=== PATIENT | male | born 1940 | race Caucasian/White ===

== ENCOUNTER → 2018-11-25 | Outpatient (CLI) | payer OTHER ==
[~2018-11-25] MED LIST: ACAR50 PO; ALBU3IS INH; ALBU90OI6 INH; ALLO100 PO; AMLO10 PO; AMOX50SU PO; ASPI81CH PO; ATOR40TA PO; Augmentin 875-1 EACH PO; BACL10 PO; BENZ100A PO; BISA10S PR; BUME2; BUME2 PO; COLC.6 PO; DIPH50 PO; DOCU100 PO; ESOM20 PO; FEXPSEER; FLUSAL2505 INH; FLUT.05NI; FURO20 PO; GLIM2; GLIM2 PO; GLIM4 PO; HYDACE10B PO; HYDACE5 PO; HYDMOR2 PO; INS70/30I SC; INS70/30I SUBQ; INS70/30PN SC; INS70/30PN SUBQ; INSLI100I; INSU100I6 SC; INSULANPEN SC; IPRAIS NEB; MAGCHL64ER PO; METO2.5 PO; NITR.4SL SL; NITRO SPRAY; Nitrostat0.4 MG SL; OLME5TAB PO; OXYACE5T PO; OXYC1TAB11 PO; PANT40 PO; PARI1 PO; PERI4; PIOG45 PO; POTA10T PO; PRED20; PRED20 PO; RXHYDMOR2 PO; TAMS.4ER PO; TEMA15 PO; TERA5 PO; Ventolin Soln3 ML INH; Ventolin5 MG/1 ML IH; WARF1; WARF2.5; WARF2.5 PO; WARF3; [UNRECOGNIZED DRUG - REMARK]
== END | disposition home or self-care (01) ==
LOC: PLD 15:53 → LAB SHORT 15:53
DX: D04.39 Carcinoma in situ of skin of other parts of face (principal)
CPT/HCPCS: 88305

== ENCOUNTER → 2018-12-24 | Outpatient (CLI) | payer OTHER ==
[2018-12-24 15:29] LABS: Protein, Urine Quantitative 118.5 mg/dL (0.0-11.9)
== END | disposition home or self-care (01) ==
LOC: LAB SHORT 07:00 → LAB 07:00 → LAB FUT 12-21 15:35
PROVIDERS: Internal Medicine Nephrology
DX: N18.3 Chronic kidney disease, stage 3 (moderate) (principal); D63.1 Anemia in chronic kidney disease; D75.1 Secondary polycythemia; N25.81 Secondary hyperparathyroidism of renal origin; E55.9 Vitamin D deficiency, unspecified; E78.00 Pure hypercholesterolemia, unspecified; R76.9 Abnormal immunological finding in serum, unspecified; R94.5 Abnormal results of liver function studies; R94.6 Abnormal results of thyroid function studies
CPT/HCPCS: 81050; 82043; 82570; 84156

== ENCOUNTER 2019-02-21 12:59 | Emergency (ER) | payer OTHER ==
[~2019-02-21] VITALS: Ht 165.1 cm; Wt 72.6 kg
[2019-02-21] MEDS ORDERED: PRED20 PO (16:44)
[2019-02-21] MEDS ORDERED: KETO10 PO (16:44)
== END 2019-02-21 17:02 | disposition home or self-care (01) ==
LOC: ER 12:59
DX: M54.5 Low back pain (principal); E11.9 Type 2 diabetes mellitus without complications; I25.2 Old myocardial infarction; J44.9 Chronic obstructive pulmonary disease, unspecified; Z87.891 Personal history of nicotine dependence; Z79.899 Other long term (current) drug therapy; Z79.01 Long term (current) use of anticoagulants; Z79.82 Long term (current) use of aspirin
CPT/HCPCS: 96372; 99282-25; J1885

== ENCOUNTER 2019-03-03 14:16 | Inpatient (IN) | payer OTHER ==
[~2019-03-03] VITALS: Ht 167.6 cm; Wt 71.7 kg
[~2019-03-03 14:16] MED LIST changes: +KETO10 PO; +WARF2 PO
[2019-03-03] MEDS ORDERED: FLUT1DIS5 INH (14:38)
[2019-03-03] MEDS ORDERED: LOSA50 PO (14:39)
[2019-03-03] MEDS ORDERED: GABA100 PO (14:40)
[2019-03-03 15:40] LABS: BASOPHILS ABSOLUTE AUTO 0.08 K/mm3 (0.00-0.23); BASOPHILS PERCENT AUTO 1 % (0-2); EOSINOPHILS ABSOLUTE AUTO 0.08 K/mm3 (0.00-0.68); EOSINOPHILS PERCENT AUTO 1 % (0-6); Hematocrit 39.9 % (37.0-53.0); Hemoglobin 13.1 g/dL (13.5-17.5); IMMATURE GRAN ABSOLUTE AUTO 0.15 K/mm3 (0.00-0.10); IMMATURE GRAN PERCENT AUTO 1 % (0-1); LYMPHOCYTES ABSOLUTE AUTO 0.77 K/mm3 (0.84-5.20); LYMPHOCYTES PERCENT AUTO 6 % (21-46); MONOCYTES ABSOLUTE AUTO 0.51 K/mm3 (0.16-1.47); MONOCYTES PERCENT AUTO 4 % (4-13); Mean Corpuscular HGB 31.6 pg (26.0-34.0); Mean Corpuscular HGB Conc 32.8 g/dL (31.5-36.5); Mean Corpuscular Volume 96 fL (80-100); Mean Platelet Volume 9.6 fL (9.1-12.4); NEUTROPHILS ABSOLUTE AUTO 11.54 K/mm3 (1.96-9.15); NEUTROPHILS PERCENT AUTO 88 % (41-73); Platelet Count 166 K/mm3 (150-400); RDW Coefficient Variation 13.2 % (11.7-14.2); RDW Standard Deviation 47.2 fL (35.1-46.3); Red Blood Cell Count 4.15 M/mm3 (4.30-5.90); White Blood Cell Count 13.13 K/mm3 (4.00-11.30)
[2019-03-03 16:10] LABS: Source, Urine Catheter
[2019-03-03 16:14] LABS: Bilirubin, Urine Neg (Neg); Blood, Urine 3+ (Neg); Glucose Qualitative, Urine 3+ (Neg); Ketones, Urine 1+ (Neg); Leukocyte Esterase, Urine 1+ (Neg); Nitrite, Urine Neg (Neg); Protein, Urine 4+ (Neg); Urobilinogen, Urine 2+ (Normal)
[2019-03-03 16:16] LABS: Alanine Aminotransfer (ALT/SGP 19 U/L (12-78); Albumin, Blood 2.3 g/dL (3.4-5.0); Albumin/Globulin Ratio 0.7 (0.8-1.8); Alk Phos 111 U/L (50-136); Anion Gap 7 mmol/L (6-16); Aspartate Aminotrans (AST/SGOT 10 U/L (12-37); Bilirubin, Total 1.6 mg/dL (0.1-1.0); Blood Urea Nitrogen 32 mg/dL (8-24); Bun/Creatinine Ratio 31.1 (12.0-20.0); CO2, Blood 29 mmol/L (21-32); Calcium, Blood 8.6 mg/dL (8.5-10.1); Chloride, Blood 101 mmol/L (98-108); Creatinine, Blood 1.03 mg/dL (0.60-1.20); Globulin, Blood 3.3 g/dL (2.2-4.0); Glomerular Filtration Rate >60 (60-); Glucose, Blood 201 mg/dL (70-99); Potassium, Blood 4.2 mmol/L (3.5-5.5); Sodium, Blood 137 mmol/L (136-145); Total Protein, Blood 5.6 g/dL (6.4-8.2)
[2019-03-03 16:19] LABS: Appearance, Urine Clear (Clear); Color, Urine Yellow (P-Yellow)
[2019-03-03 16:21] LABS: Red Blood Cells, Urine 25-50 /hpf (0-2)
[2019-03-03 16:22] LABS: Bacteria Few /hpf; Mucus Light (0-Heavy); Squamous Epithelial Cells Few /hpf (Few)
[2019-03-03] MEDS ORDERED: ERGO400 PO (18:28)
[2019-03-03 18:53] LABS: Prothrombin Time Results >90.0 Sec (9.7-11.5)
[2019-03-03 18:54] LABS: International Normalized Ratio 13.77
[2019-03-03 20:05] LABS: Prothrombin Time Results >90.0 Sec (9.7-11.5)
[2019-03-03 20:10] LABS: International Normalized Ratio 13.51
[2019-03-03 22:12] LABS: Hematocrit 36.8 % (37.0-53.0); Hemoglobin 12.1 g/dL (13.5-17.5)
--- NOTE | 2019-03-04 03:32 | NUR ---
CRITICAL INR THIS RN WAS NOTIFIED THAT THE PT'S INR WAS CRITICALLY HIGH AT 2009. THE HOSPITALIST JAY JAY DIALLO WAS CONSULTED AT 2129. PO VITAMIN K AND 3 UNITS OF FFP WERE ORDERED. ON ASSESSMENT, THE PT WAS NOTED TO HAVE CRACKLES IN HIS BILAT LOWER LOBES. THE HOSPITALIST JAY JAY DIALLO WAS CONSULTED ABOUT THE POSSIBILITY OF FLUID OVERLOAD, BUT DECLINED TO GIVE ANY DIURETICS AT THIS TIME, AND INSTRUCTED TO KEEP MONITORING. WHILE RECEIVING FFP, THE PT BEGAN COUGHING UP BLOODY SPUTUM, APPROXIMATELY 4 TIMES OF A TABLESPOON EACH. HE ALSO HAD AN EPISODE OF LOW O2 SATS BETWEEN 87-88, AND WAS PUT ON 1-2L OF O2 TO BRING HIM UP TO 90-91%. THE HOSPITALIST DR. COCHRAN WAS CONSULTED AT 0200, WITH NO FURTHER ORDERS AT THIS TIME.
[2019-03-04 05:16] LABS: Hematocrit 32.7 % (37.0-53.0); Hemoglobin 10.6 g/dL (13.5-17.5); Mean Corpuscular HGB 32.4 pg (26.0-34.0); Mean Corpuscular HGB Conc 32.4 g/dL (31.5-36.5); Mean Platelet Volume 9.5 fL (9.1-12.4); Platelet Count 128 K/mm3 (150-400); RDW Coefficient Variation 13.2 % (11.7-14.2); RDW Standard Deviation 49.1 fL (35.1-46.3); Red Blood Cell Count 3.27 M/mm3 (4.30-5.90)
[2019-03-04 05:18] LABS: Mean Corpuscular Volume 100 fL (80-100)
[2019-03-04 05:20] LABS: Base Excess Venous 5.8 mmol/L; Bicarbonate Venous 29.1 mmol/L (24.0-30.0); PCO2 Venous 41.3 mmHg (38-42); PO2 Venous 70.6 mmHg (38-42); pH Blood Venous 7.46 (7.34-7.37)
[2019-03-04 05:31] LABS: International Normalized Ratio 1.74
[2019-03-04 05:33] LABS: Prothrombin Time Results 17.5 Sec (9.7-11.5)
[2019-03-04 05:40] LABS: BAND PERCENT MAN 7 % (0-8); BASOPHILS PERCENT MAN 0 % (0-2); EOSINOPHILS PERCENT MAN 0 % (0-6); LYMPHOCYTES ABSOLUTE MAN 0.42 K/mm3 (0.84-5.20); LYMPHOCYTES PERCENT MAN 4 % (21-46); MONOCYTES PERCENT MAN 0 % (4-13); NEUTROPHILS ABSOLUTE MAN 10.08 K/mm3 (1.96-9.15); SEG NEUTROPHILS PERCENT MAN 89 % (41-73); TOTAL CELLS COUNTED 100
[2019-03-04 05:45] LABS: Alanine Aminotransfer (ALT/SGP 20 U/L (12-78); Albumin, Blood 2.5 g/dL (3.4-5.0); Albumin/Globulin Ratio 0.7 (0.8-1.8); Alk Phos 97 U/L (50-136); Anion Gap 6 mmol/L (6-16); Aspartate Aminotrans (AST/SGOT 19 U/L (12-37); Bilirubin, Total 2.2 mg/dL (0.1-1.0); Blood Urea Nitrogen 26 mg/dL (8-24); Bun/Creatinine Ratio 24.1 (12.0-20.0); CO2, Blood 30 mmol/L (21-32); Calcium, Blood 8.6 mg/dL (8.5-10.1); Chloride, Blood 103 mmol/L (98-108); Creatinine, Blood 1.08 mg/dL (0.60-1.20); Globulin, Blood 3.4 g/dL (2.2-4.0); Glomerular Filtration Rate >60 (60-); Glucose, Blood 158 mg/dL (70-99); Potassium, Blood 4.1 mmol/L (3.5-5.5); Sodium, Blood 139 mmol/L (136-145); Total Protein, Blood 5.9 g/dL (6.4-8.2)
--- NOTE | 2019-03-04 06:45 | NUR ---
SHIFT SUMMARY PT IS A 78 Y/O MALE, ADMITTED FOR DIVERTICULITIS. PER REPORT, PT WAS ALSO FOUND TO HAVE A LUMBAR FRACTURE, THOUGH THE AGE OF THE FRACTURE WAS UNDETERMINED. THE PT DID REPORT SEVERE BACK PAIN WITH MOVEMENT, WELL SOME LOWER ABDOMINAL PAIN, FOR WHICH HE WAS MEDICATED X 2 WITH PRN DILAUDID. THE PT HAD A CRITICAL INR OF 13.5 (SEE PREVIOUS NOTE), WHICH AFTER TREATMENT CAME DOWN TO 1.74 ON AM LABS. THE PT'S O2 SATS DROPPED DOWN TO 87-88%, AND CAME UP TO 90-91% ONCE PLACED ON 2L OF O2 FROM RA. ALL OTHER VITALS STABLE. PT IS ON TELE, WHICH SHOWED AFIB IN THE 60-70S. NO OTHER ACUTE CHANGES IN PT CONDITION NOTED DURING THE NIGHT. WILL CONTINUE TO MONITOR AND TREAT PER EMAR.
--- NOTE | 2019-03-04 07:38 | NUR ---
ASSUMED CARE OF PT- BEDSIDE REPORT COMPLETE WITH NIGHT RN CRISTINA. PT JUST ATTEMPTED TO URINATE AT THE BEDSIDE WITH THE URINAL. PT WAS NOTABLY SOB. ON CONT BIOX PT SATS IN THE 70'S, INSTRUCTED PT ON BREATHING, PT COUGHED UP BLOODY SPUTUM, DARK RED. O2 INCREASED TO 4L NC FOR PT TO RECOVER, SATS CAME TO THE 90'S REDUCED TO 3L AND SATS DROPPED TO THE MID 80'S. RT ARRIVED AND PT INCREASED TO 4L VIA NC. OXIMIZER AT THE BEDSIDE IF NEEDED. LUNG SOUNDS ARE TIGHT WITH FINE CRACKLES AND WHEEZES T/O. CALLED DR MALLOY AND UPDATED ON PT CONDITION. NEW ORDER FOR OT 80MG IV LASIX AND 2VIEW CHEST XRAY. RT SUGGESTED BIPAP FOR THIS PT, NO ORDER AT THIS TIME WILL CONTINUE TO MONITOR.
--- NOTE | 2019-03-04 09:09 | NUR ---
PT IS STILL VERY SOB AND COUGHING UP BLOODY SPUTUM. CHEST XRAY OBTAINED. PT RECIEVED FELICIA, HAVING DIFFICULTY WITH THE URINAL, WILL ATTEMPT BEDSIDE COMODE FOR COMFORT AND STRESS REDUCTION ON THE PT, IF HE IS ABLE TO TOLLERATE THE ACTIVITY. PT ACTIVITY TOLLERANCE IS VERY LOW, O2 SATS DROP WITH MILD ACTIVITY. SEEMS TO BE MORE TIRED NOT THAN THE START OF THE DAY, POSSIBLY RELATED TO THE DILAUDID; HOWEVER PT IS NOT NARCOTIC NAIVE.
--- NOTE | 2019-03-04 09:47 | NUR ---
PATIENT DID NOT FEEL LIKE EATING BREAKFAST THIS MORNING. PATIENT DECLINED TRAY. RN NOTIFIED.
--- NOTE | 2019-03-04 12:17 | NUR ---
PATIENT DECLINED LUNCH TRAY. RN NOTIFIED.
--- NOTE | 2019-03-04 12:25 | NUR ---
EMERSON CATH INSERTION- STERILE TECNIQUE MAINTAINED. PT TOLLERATED WELL. PT BLADDER SCAN WAS 396ML. INITIAL OUTPUT WAS 550ML OUT.
[2019-03-04 12:30] LABS: Source, Urine Catheter
[2019-03-04 12:40] LABS: Bilirubin, Urine Neg (Neg); Blood, Urine 3+ (Neg); Glucose Qualitative, Urine Neg (Neg); Ketones, Urine Neg (Neg); Leukocyte Esterase, Urine Neg (Neg); Nitrite, Urine Neg (Neg); Protein, Urine 2+ (Neg); Urobilinogen, Urine NORM (Normal)
[2019-03-04 12:53] LABS: Appearance, Urine Clear (Clear); Color, Urine Yellow (P-Yellow)
[2019-03-04 12:55] LABS: White Blood Cells, Urine 0-2 /hpf (0-5)
[2019-03-04 12:56] LABS: Bacteria Few /hpf; Mucus Light (0-Heavy); Squamous Epithelial Cells Not Seen /hpf (Few)
--- NOTE | 2019-03-04 18:44 | NUR ---
Initial Visit: Palliative Care Consult for Advanced Care Planning. Pt is A&Ox3. He is unable to verbalize current year. Pt reports 7/10 pain in his back, left hip, and left shoulder. Pt reports the Fentanyl patch has improved his pain. Pt denies anxiety, dyspnea, and nausea. Pt's Rosa present during visit. Engaged in therpaeutic conversation regarding advanced care planning and goals of care. Pt lives at home with his and oldest son. Pt is of [employer] [place]. Listened as Pt expresses his appriciation for his and son. Pt reports he is independent with his ADLs. Rosa reports Pt has shown a decline over the last couple of years in his ability to do certain activities. Pt is not able to mow the lawn or wash the car. He still does a significant amount of the chores inside the house such as laundry and cooking. 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 Discuss the importance of knowing the stage of his disease process in order to plan accordingly. Discussed AD/POLST with Pt. Rosa reports Pt has a completed POLST at his PCP. This RN requested Rosa to bring a copy of POLST to hospital for medical records. Educated Pt on the importance of keeping the original and giving out copies to PCP and other health care staff. Pt report no other concerns at this time. Plan: Obtain copy of POLST from family. Will remain available.
--- NOTE | 2019-03-04 18:57 | NUR ---
Late Entry from Initial Visit. Spoke with Pt's nurse Nya and she reports Pt's pain is managed with current regimen. Nya reports no concerns at this time.
--- NOTE | 2019-03-04 19:44 | NUR ---
SHIFT SUMMARY- PT PAIN SEEMS TO BE WELL MANAGE, DURING BEDSIDE REPORT PT RATED 6/10. DISCUSSED THE USE OF PAIN MEDICATION WITH THE PT AND HE AGREED TO TAKE DILAUDID NOW BEFORE HIS PAIN GOT WORSE. PT ALERT AND ORIENTED. CALL LIGHT IN REACH, EMERSON IN PLACE PATENT AND DRAINING PT HAS HAD MORE THAN 1000ML OUT SINCE THE EMERSON INSERTION THIS AFTERNOON. PT SLEPT FOR QUITE A BIT OF THE AFTERNOON AND WHEN HE WOKE WAS HUNGRY FOR THE FIRST TIME THIS SHIFT. PT SAT UP AT THE EOB ON HIS OWN WITH MINIMAL SIGN OF PAIN, O2 SATS STILL DROP WITH ACTIVITY LIKE THIS AND PT IS TURNED UP TO 5L NC UNTIL HE LAYS BACK DOWN. DR AWARE OF PT INCREASED O2 REQUIREMENTS, PT HAS NOT COUGHED UP MUCH BLOODY SPUTUM SINCE THIS AFTERNOON, LUNG SOUND STILL CRACKLY IN ALL [place].
[2019-03-04 21:36] LABS: Source, Urine Catheter
[2019-03-04 21:39] LABS: Appearance, Urine Hazy (Clear); Bilirubin, Urine Neg (Neg); Blood, Urine 4+ (Neg); Color, Urine Yellow (P-Yellow); Glucose Qualitative, Urine 3+ (Neg); Ketones, Urine 2+ (Neg); Leukocyte Esterase, Urine 1+ (Neg); Nitrite, Urine Neg (Neg); Protein, Urine 3+ (Neg); Urobilinogen, Urine 1+ (Normal)
[2019-03-04 21:45] LABS: Bacteria Many /hpf; Squamous Epithelial Cells Not Seen /hpf (Few)
[2019-03-05 04:50] LABS: BASOPHILS ABSOLUTE AUTO 0.05 K/mm3 (0.00-0.23); BASOPHILS PERCENT AUTO 1 % (0-2); EOSINOPHILS PERCENT AUTO 0 % (0-6); Hematocrit 31.4 % (37.0-53.0); Hemoglobin 10.1 g/dL (13.5-17.5); IMMATURE GRAN ABSOLUTE AUTO 0.19 K/mm3 (0.00-0.10); IMMATURE GRAN PERCENT AUTO 2 % (0-1); LYMPHOCYTES ABSOLUTE AUTO 0.14 K/mm3 (0.84-5.20); LYMPHOCYTES PERCENT AUTO 1 % (21-46); MONOCYTES ABSOLUTE AUTO 0.19 K/mm3 (0.16-1.47); MONOCYTES PERCENT AUTO 2 % (4-13); Mean Corpuscular HGB 31.4 pg (26.0-34.0); Mean Corpuscular HGB Conc 32.2 g/dL (31.5-36.5); Mean Corpuscular Volume 98 fL (80-100); Mean Platelet Volume 9.7 fL (9.1-12.4); NEUTROPHILS ABSOLUTE AUTO 10.29 K/mm3 (1.96-9.15); NEUTROPHILS PERCENT AUTO 95 % (41-73); Platelet Count 123 K/mm3 (150-400); RDW Coefficient Variation 13.1 % (11.7-14.2); RDW Standard Deviation 47.3 fL (35.1-46.3); Red Blood Cell Count 3.22 M/mm3 (4.30-5.90); White Blood Cell Count 10.86 K/mm3 (4.00-11.30)
[2019-03-05 05:03] LABS: International Normalized Ratio 1.51; Prothrombin Time Results 15.4 Sec (9.7-11.5)
[2019-03-05 05:17] LABS: Anion Gap 6 mmol/L (6-16); Blood Urea Nitrogen 29 mg/dL (8-24); CO2, Blood 32 mmol/L (21-32); Calcium, Blood 8.4 mg/dL (8.5-10.1); Chloride, Blood 95 mmol/L (98-108); Creatinine, Blood 1.16 mg/dL (0.60-1.20); Glomerular Filtration Rate >60 (60-); Glucose, Blood 383 mg/dL (70-99); Potassium, Blood 3.4 mmol/L (3.5-5.5); Sodium, Blood 133 mmol/L (136-145)
--- NOTE | 2019-03-05 07:37 | NUR ---
ASSUMED CARE OF PT- PT SLEEPING DURRING BEDSIDE REPORT WITH NIGHT RN SARY, O2 SATS 97% ON 4L NC, REDUCED TO 3L NC. PT ON CONTINUOUS PULS OXIMETRY WILL CONTINUE TO MONITOR AND TITRATE O2 NEEDED.
--- NOTE | 2019-03-05 07:43 | NUR ---
SPOKE TO RT JUDY- PT O2 TITRATED DOWN TO 3LNC SATTING 95% SPOKE TO RT AND TITRATED DOWN AGAIN TO 2LNC WILL CTM. RT AWARE AND WILL RECHECK SATS ON MORNING ROUNDS.
--- NOTE | 2019-03-05 18:07 | NUR ---
SHIFT SUMMARY- PT O2 SATS STAYING STABLE IN THE 80'S SO O2 WAS TITRATED BACK TO 4L NC. PT SATTING 94 WHILE AWAKE ON 4L NC. ON LAST ROUNDS PT DECLINED THE NEED FOR PAIN MEDICATION STATED HIS PAIN WAS 4/10. 20G IV IN THE RIGHT FORE ARM IS CURREMTLY RUNNING ABX, OTHERWISE IT IS SL. PT HAS NO C/O NAUSEA AND NO S&S OF DISTRESS NOTED AT THIS TIME. PT SITTING UP IN BED WITH HIS CALL LIGHT IN REACH. PT DIET RETURNED TO 2 GRAM LOW SODIUM. PT HAD AN EXTRA LARGE BM THIS MORNING. HE HAS SLEPT TODAY, BUT NOT MUCH YESTERDAY AND SEEMS TO BE MORE ENERGETIC WHEN HE IS AWAKE, BED BATH COMPLETED BY THE ARCHITECTURAL WOOD MODEL MAKER THIS MORNING.
--- NOTE | 2019-03-06 04:16 | NUR ---
SHIFT SUMMARY PT HAD SOME DISCOMFORT T/O SHIFT. PT TX PER EMAR WITH GOOD RELIEF. PT HAD FAMILY VISIT AND WAS IN GOOD SPIRITS. PT WAS UP LATE WATCHING TV. PT CURRENTLY SLEEPING IN NO DISTRESS. CALL LIGHT IN REACH.
[2019-03-06 05:06] LABS: BASOPHILS ABSOLUTE AUTO 0.05 K/mm3 (0.00-0.23); BASOPHILS PERCENT AUTO 1 % (0-2); EOSINOPHILS ABSOLUTE AUTO 0.14 K/mm3 (0.00-0.68); EOSINOPHILS PERCENT AUTO 1 % (0-6); Hematocrit 31.6 % (37.0-53.0); Hemoglobin 10.5 g/dL (13.5-17.5); IMMATURE GRAN ABSOLUTE AUTO 0.17 K/mm3 (0.00-0.10); IMMATURE GRAN PERCENT AUTO 2 % (0-1); LYMPHOCYTES PERCENT AUTO 6 % (21-46); MONOCYTES ABSOLUTE AUTO 0.48 K/mm3 (0.16-1.47); MONOCYTES PERCENT AUTO 5 % (4-13); Mean Corpuscular HGB 32.2 pg (26.0-34.0); Mean Corpuscular HGB Conc 33.2 g/dL (31.5-36.5); Mean Corpuscular Volume 97 fL (80-100); Mean Platelet Volume 9.7 fL (9.1-12.4); NEUTROPHILS ABSOLUTE AUTO 8.71 K/mm3 (1.96-9.15); NEUTROPHILS PERCENT AUTO 86 % (41-73); Platelet Count 137 K/mm3 (150-400); RDW Coefficient Variation 12.9 % (11.7-14.2); RDW Standard Deviation 46.4 fL (35.1-46.3); Red Blood Cell Count 3.26 M/mm3 (4.30-5.90); White Blood Cell Count 10.15 K/mm3 (4.00-11.30)
[2019-03-06 05:21] LABS: International Normalized Ratio 2.19; Prothrombin Time Results 21.6 Sec (9.7-11.5)
[2019-03-06 05:24] LABS: Calcium, Blood 8.4 mg/dL (8.5-10.1); Creatinine, Blood 1.39 mg/dL (0.60-1.20); Potassium, Blood 3.4 mmol/L (3.5-5.5)
--- NOTE | 2019-03-06 08:16 | NUR ---
ASSUMED CARE OF PT- BEDSIDE REPORT COMPLETED WITH [facility] RANDOLPH OKEEFE. PT DENIES NEED FOR PAIN MEDICATION AT THIS TIME, WILL CTM. PT ALERT AND ORIENTED AND HAS THE CALL LIGHT IN REACH, NO S&S OF DISTRESS NOTED, SPOUSE AND SON AT BEDSIDE. ON 4L NC, CONT BIOX SHOWS SATS 94%.
--- NOTE | 2019-03-06 16:36 | NUR ---
CALLED PALLIATIVE CARE- OFFICE IS CLOSED D/T HOLIDAY, SPOKE WITH NURSING TOP BOTTOM ATTACHING MACHINE OPERATOR TO VERIFY.
--- NOTE | 2019-03-06 16:36 | NUR ---
PT C/O 06/25 PAIN- PT RECIEVED OXYCODONE AT 1300 WAS CALLING FOR PAIN MEDICATION AGAIN AT 1500. TALKED ABOUT CHANGES MADE TO RETURN THE PT TO HOME PAIN MEDICATION DOSE. PT REPOSITIONED WITH TWO STAFF ASSIST, 15 MIN RECHECK THIS STILL DID NOT HELP. HEATING PAD PLACED OVER THE AREA CAUSING THE PT THE MOST PAIN. JUST DID 30MIN RECHECK AND PT IS NEAR TEARS STATED THE PAIN IS STILL BAD. WILL CALL TO NOTIFY.
--- NOTE | 2019-03-06 19:01 | NUR ---
SHIFT SUMMARY- FENTANYL PATCH CHANGED TO 100MCG. PT BP WAS LOW 90/50, SPOKE ABOUT THE DANGER OF IV NARCOTICS WITH A BP THIS LOW, DID NOT GIVE NEW ORDER FOR IV DILAUDID FOR THIS REASON. FOLLOW UP FOR PATCH CHANGE SHOWED THE PT FAR MORE MOBILE ALREADY, STILL PAINFUL BUT DEFINATELY NOT LIKE HE WAS BEFORE. PT SAT UP AT THE EOB TO EAT HIS DINNER, SPOKE WITH HIM ABOUT GETTING OUT OF BED INTO A CHAIR, FOLWY CATHETER IS PATENT AND DRAINING CURRENTLY. PT HAS BEEN ON FLOMAX FOR TWO DAYS, POSSIBLY ABLE TO DO BLADDER TRAINING AND DC EMERSON TOMORROW.
--- NOTE | 2019-03-07 04:13 | NUR ---
SHIFT SUMMARY PT BP INCREASED AT BEGINNING OF SHIFT. PT WAS ABLE TO BE MEDICATED FOR PAIN WITH GOOD RELIEF. PT WENT TO SLEEP EARLIER THIS SHIFT AND SLEPT WELL T/O SHIFT. PT ONLY NEW COMPLAINT IS GREAT TOE DISCOMFORT ON LEFT FOOT. PT STATES HE NORMALLY HAS HIS NAILS TRIMMED BY HIS EDUCATION PROGRAM MANAGER AND BELIEVES HE HAS A INGROWN NAIL. PT HAD NO ACUTE ISSUES NOTED. PT WAS REPOSITIONED NEEDED FOR COMFORT. PT CURRENTLY AWAKE WATCHING TV AND BREATHING EASY. CALL LIGHT IN REACH.
[2019-03-07 04:59] LABS: BASOPHILS ABSOLUTE AUTO 0.06 K/mm3 (0.00-0.23); BASOPHILS PERCENT AUTO 1 % (0-2); EOSINOPHILS PERCENT AUTO 0 % (0-6); Hematocrit 30.1 % (37.0-53.0); Hemoglobin 9.8 g/dL (13.5-17.5); IMMATURE GRAN ABSOLUTE AUTO 0.13 K/mm3 (0.00-0.10); IMMATURE GRAN PERCENT AUTO 2 % (0-1); LYMPHOCYTES PERCENT AUTO 4 % (21-46); MONOCYTES ABSOLUTE AUTO 0.26 K/mm3 (0.16-1.47); MONOCYTES PERCENT AUTO 3 % (4-13); Mean Corpuscular HGB 32.2 pg (26.0-34.0); Mean Corpuscular HGB Conc 32.6 g/dL (31.5-36.5); Mean Corpuscular Volume 99 fL (80-100); Mean Platelet Volume 9.9 fL (9.1-12.4); NEUTROPHILS PERCENT AUTO 91 % (41-73); Platelet Count 144 K/mm3 (150-400); RDW Coefficient Variation 12.9 % (11.7-14.2); RDW Standard Deviation 46.5 fL (35.1-46.3); Red Blood Cell Count 3.04 M/mm3 (4.30-5.90); White Blood Cell Count 7.95 K/mm3 (4.00-11.30)
[2019-03-07 05:13] LABS: International Normalized Ratio 3.8; Prothrombin Time Results 35.7 Sec (9.7-11.5)
[2019-03-07 05:20] LABS: Bun/Creatinine Ratio 28.7 (12.0-20.0); Calcium, Blood 8.6 mg/dL (8.5-10.1); Creatinine, Blood 1.29 mg/dL (0.60-1.20); Potassium, Blood 4.6 mmol/L (3.5-5.5)
[2019-03-07 05:49] LABS: PCO2 Arterial 50.5 mmHg (35-45); PO2 Arterial 81.7 mmHg (80-100); pH Blood Arterial 7.42 (7.35-7.45)
--- NOTE | 2019-03-07 19:40 | NUR ---
PAIN UNDER BETTER CONTROL TODAY, ALTERNATING IV DILAUDID WITH PO ROXICODONE. NEW IV PLACED THIS SHIFT AND PT RECEIVING IV ABX. NO ACUTE CHANGES NOTED THIS SHIFT, WILL CONTINUE TO MONITOR AND REPORT TO ONCOMING RN
--- NOTE | 2019-03-08 05:06 | NUR ---
FITNESS PROFESSIONAL SUMMARY NO ACUTE CHAGNES THIS SHIFT. PT AAOX4 AND VERY PLEASANT. TREATED FOR BACK AND R HIP PAIN X2 PER EMAR. EMERSON CATH IN PLACE, PATENT AND DRAINING. PT HAS NOT HAD A BM THIS SHIFT, DENIES ANY FLATUS WELL. PT REMAINS ON 3L O2 VIA NC. VSS, WILLC CONTINUE TO MONITOR.
[2019-03-08 06:05] LABS: Prothrombin Time Results 48.2 Sec (9.7-11.5)
[2019-03-08 06:09] LABS: International Normalized Ratio 5.29
--- NOTE | 2019-03-08 18:00 | NUR ---
SHIFT SUMMARY STUART COMPLAINED OF LOWER BACK PAIN WHICH AMBULATION AND HEAT AND OXY HELPED WITH. WALKED AROUND BIG LOOP OF HALLWAY WITH SBA AND WALKER. EMERSON FOR RETENTION DRAINING WELL. CBGS REQUIRING INSULIN X1. ON 3L OXYGEN. HAD BM ON BSC. TOOK PILLS PRESCRIBED. WCTM
--- NOTE | 2019-03-09 00:56 | NUR ---
Pt was given his HS contrast for CT scan in am. When I turned my back he decided he did not like it and very quickly dumped it in the garbage can. He stated that he drank 1/2 of it but I did not witness. Radiology called to see what I should do. I was told to continue with morning dose as planned with close supervision.
--- NOTE | 2019-03-09 04:47 | NUR ---
Shift summary: Pt getting oxycodone during the night for back pain q 4 hours. Pt able to drink his contrast this am. Pt sleeping most of night. Maintaining sats> 90 with 3 liters 02. Pt to go for CT of abdomen this am.
[2019-03-09 05:01] LABS: Hematocrit 35.2 % (37.0-53.0); Hemoglobin 11.2 g/dL (13.5-17.5); Mean Corpuscular HGB Conc 31.8 g/dL (31.5-36.5); Mean Corpuscular Volume 101 fL (80-100); Mean Platelet Volume 9.5 fL (9.1-12.4); Platelet Count 231 K/mm3 (150-400); RDW Coefficient Variation 13.1 % (11.7-14.2); RDW Standard Deviation 48.4 fL (35.1-46.3); White Blood Cell Count 11.05 K/mm3 (4.00-11.30)
[2019-03-09 05:21] LABS: Prothrombin Time Results 47.6 Sec (9.7-11.5)
[2019-03-09 05:30] LABS: International Normalized Ratio 5.22
[2019-03-09 05:33] LABS: Albumin, Blood 2.5 g/dL (3.4-5.0); Anion Gap 5 mmol/L (6-16); Blood Urea Nitrogen 31 mg/dL (8-24); CO2, Blood 32 mmol/L (21-32); Calcium, Blood 9.5 mg/dL (8.5-10.1); Chloride, Blood 102 mmol/L (98-108); Creatinine, Blood 1.07 mg/dL (0.60-1.20); Glomerular Filtration Rate >60 (60-); Glucose, Blood 180 mg/dL (70-99); Potassium, Blood 4.7 mmol/L (3.5-5.5); Sodium, Blood 139 mmol/L (136-145)
--- NOTE | 2019-03-09 05:42 | NUR ---
Shift summary: INR = 5.22 down from 5.29 from yesterday. Critical notification document and discussed with charge nurse. Pt able to successfully drink the rest of his contrast this am. Abdomen distended this am. Bowel sound active . VSS. Pt c/o back pain- given oxycodone with adequate relief. Pt to CT at 0600 via wheelchair for abdominal/pelvic ct scan. Lungs diminished throughout. Pt has occasional cough coughing up brown flem. O2 on at 3 liters to keep sat > 90.
--- NOTE | 2019-03-09 11:36 | NUR ---
CHOLESTEROL/GAS MED PATIENT IS PATIENT IS REQUESTING A MEDICATION CALLED [facility]? OR SOMETHING SIMILAR. WILL CALL HIS PHARMACY TO [place]. THE MEDICATION IS USED TO TREAT CHOLESTEROL BUT ALSO HELPS HIM RELIEVE GAS AND DISTENTION.
--- NOTE | 2019-03-09 11:38 | NUR ---
CHOLESTEROL MED/GAS MED UPDATE. THE MEDICATION IS CALLED ACAR[facility]
--- NOTE | 2019-03-09 14:48 | NUR ---
TRANSFER OF CARE TO RANDOLPH TAYLOR.
--- NOTE | 2019-03-09 17:48 | NUR ---
SHIFT SUMMARY: ASSUMED CARE AT APPROX. 1445. REPORT FROM RANDOLPH SAINI. PT REPORTS HIS PAIN IS IMPROVING. LIDOCAINE PATCH PLACED TO LOWER BACK THIS AFTERNOON AND FENTANYL PATCH CHANGED. PT REQUESTED OXYCODONE LATE THIS AFTERNOON. NO ACUTE CHANGES. WILL CONTINUE TO MONITOR.
--- NOTE | 2019-03-09 23:55 | NUR ---
PT LYING HF WATCHING TV DURING SHIFT REPORT. IN RM AT BS. PT ADMITTED FOR DIVERTICULITIS AND NOW BOWEL PERFORATION, PER CT FINDINGS TODAY. ABD SWOLLEN SLIGHTLY. PER SHIFT REPORT, PT IS IMPROVING. NO S/SX'S OF DISTRESS NOTED OR REPORTED. PT DOES C/O CHRONIC LBP. LIDOCAINE AND FENTANYL PATCHES IN PLACE PER ORDERS. PT ALSO MEDICATED PRN PER EMAR. PER PT'S , PT ALSO HAS SOME PNM D/T DECREASED MOBILITY. LUNG'S T/O DIMINISHED WITH SCATTERED CRACKLES. IV ABX INFUSING PER EMAR. CURRENTLY ON 3L O2 NC. PT WAS NOT O2 DEPENDANT AT HOME PRIOR TO PNM. STAYING IN RM TO ASSIST WITH CARE, PER PT REQUEST. CALL LT IN REACH. WILL REPORT TO ROGER DICKSON.
--- NOTE | 2019-03-10 00:48 | NUR ---
0015 RECEIVED REPORT FROM RANDOLPH PEREZ. ASSUMED CARE OF PATIENT.
--- NOTE | 2019-03-10 04:32 | NUR ---
SHIFT SUMMARY A/O, ABLE TO MAKE NEEDS KNOWN. COOPERATIVE WITH CARE. AT BEDSIDE. APPEARED TO REST MUCH OF SHIFT. EMERSON PATENT AND SECURED. REMAINS ON 2.5 L OF O2 VIA NC, SATING >90%. VSS/AFEBRILE. NO ACUTE CHANGES OVERNIGHT. BED IN LOWEST POSITION. CALL LIGHT AND BELONGINGS WITHIN REACH. WCTM. REPORT TO ONCOMING RN.
[2019-03-10 04:40] LABS: BASOPHILS ABSOLUTE AUTO 0.05 K/mm3 (0.00-0.23); BASOPHILS PERCENT AUTO 1 % (0-2); EOSINOPHILS ABSOLUTE AUTO 0.01 K/mm3 (0.00-0.68); EOSINOPHILS PERCENT AUTO 0 % (0-6); Hematocrit 34.2 % (37.0-53.0); IMMATURE GRAN ABSOLUTE AUTO 0.47 K/mm3 (0.00-0.10); IMMATURE GRAN PERCENT AUTO 5 % (0-1); LYMPHOCYTES ABSOLUTE AUTO 0.88 K/mm3 (0.84-5.20); LYMPHOCYTES PERCENT AUTO 9 % (21-46); MONOCYTES ABSOLUTE AUTO 0.47 K/mm3 (0.16-1.47); MONOCYTES PERCENT AUTO 5 % (4-13); Mean Corpuscular HGB 32.5 pg (26.0-34.0); Mean Corpuscular HGB Conc 32.2 g/dL (31.5-36.5); Mean Corpuscular Volume 101 fL (80-100); Mean Platelet Volume 9.3 fL (9.1-12.4); NEUTROPHILS ABSOLUTE AUTO 7.85 K/mm3 (1.96-9.15); NEUTROPHILS PERCENT AUTO 81 % (41-73); NRBC ABSOLUTE 0.02 K/mm3 (0.00-0.02); NRBC Auto 0.2 /100 WBC (0.0-0.2); Platelet Count 240 K/mm3 (150-400); RDW Coefficient Variation 13.3 % (11.7-14.2); RDW Standard Deviation 49.6 fL (35.1-46.3); Red Blood Cell Count 3.38 M/mm3 (4.30-5.90); White Blood Cell Count 9.73 K/mm3 (4.00-11.30)
[2019-03-10 04:54] LABS: International Normalized Ratio 3.6
[2019-03-10 05:06] LABS: Anion Gap 4 mmol/L (6-16); Blood Urea Nitrogen 33 mg/dL (8-24); Bun/Creatinine Ratio 28.9 (12.0-20.0); CO2, Blood 32 mmol/L (21-32); Chloride, Blood 101 mmol/L (98-108); Creatinine, Blood 1.14 mg/dL (0.60-1.20); Glomerular Filtration Rate >60 (60-); Glucose, Blood 329 mg/dL (70-99); Potassium, Blood 5.3 mmol/L (3.5-5.5); Sodium, Blood 137 mmol/L (136-145)
[2019-03-10 05:08] LABS: Calcium, Blood 9.4 mg/dL (8.5-10.1)
--- NOTE | 2019-03-10 19:37 | NUR ---
SHIFT SUMMARY PT A&OX3, CALM AND COOPERATIVE WITH CARE. PT RESTING IN BED DURING SHIFT, ENCOURAGED PT TO GET UP IN CHAIR FOR MEALS, PT REFUSED. PT UP WITH 1 PERSON ASSIST WALKED T/O HALLS. PT TITRTATED TO 2L O2 VIA NC DURING SHIFT, >92% ON 2L. PRODUCTIVE COUGH, BOWEN IN COLOR WITH RED SPECKS, DR VILLARREAL NOTIFIED THIS AFTERNOON. PT REPROTS BACK PAIN, MEDICATED WITH LIDO PATCH AND CALCITONIN SPRAY, FENT PATCH IN PLACE AND OXYCODONE X3 DURING SHIFT. PT REPORTS NAUSEA THIS AM, MEDICATED X1 WITH REGLAN WIHT POSITIVE RESULTS, NO EMESIS NOTED DURING SHIFT. PT RECEIVING IV ANTIBIOTICS. EMERSON IN PLACE AND DRAINING. ELEVATED BP NOTED, MEDICATED PER EMAR. OTHER VSS. NO OTHER ACUTE CHANGES NOTED DURING SHIFT. REPORT GIVEN TO ONCOMING RN.
--- NOTE | 2019-03-11 04:12 | NUR ---
SHIFT SUMMARY PATIENT HAD NO ACUTE CHANGES OBSERVED THIS SHIFT. AXOX 3 AND ONE ASSIST TO BSC. TAKES MEDICATION WHOLE WITH WATER. VSS/AFEBRILE. DENIES PAIN, SOB, AND N/V. PIV REMAINS INTACT. IV ABX INFUSED. ON 2L O2 NC. EMERSON FOR RETENTION PATENT AND DRAINING. CBG 165. COOPERATIVE WITH CARE. CALL LIGHT IN REACH. BED IN LOWEST POSITION. WILL CONTINUE TO MONITOR UNTIL DAY SHIFT NURSE ASSUMES CARE.
[2019-03-11 05:25] LABS: International Normalized Ratio 2.13; Prothrombin Time Results 21.1 Sec (9.7-11.5)
--- NOTE | 2019-03-11 06:04 | NUR ---
PATIENT HAD SOB WITH BACK PAIN. PATIENT GETTING ANXIOUS. RT IN FOR BREATHING TX AND PAIN MEDICATION GIVEN PER EMAR. PATIENT SOB DECREASED AND LOW BACK PAIN DECREASED. PATIENT RESTING IN BED. CALL LIGHT IN REACH.
[2019-03-11 07:59] LABS: Hematocrit 43.4 % (37.0-53.0); Hemoglobin 13.6 g/dL (13.5-17.5); Mean Corpuscular HGB 31.7 pg (26.0-34.0); Mean Corpuscular HGB Conc 31.3 g/dL (31.5-36.5); Mean Corpuscular Volume 101 fL (80-100); Mean Platelet Volume 9.5 fL (9.1-12.4); NRBC ABSOLUTE 0.08 K/mm3 (0.00-0.02); NRBC Auto 0.6 /100 WBC (0.0-0.2); Platelet Count 319 K/mm3 (150-400); RDW Coefficient Variation 13.5 % (11.7-14.2); RDW Standard Deviation 49.8 fL (35.1-46.3); Red Blood Cell Count 4.29 M/mm3 (4.30-5.90); White Blood Cell Count 12.33 K/mm3 (4.00-11.30)
[2019-03-11 08:14] LABS: Anion Gap 4 mmol/L (6-16); Blood Urea Nitrogen 28 mg/dL (8-24); Bun/Creatinine Ratio 25.5 (12.0-20.0); CO2, Blood 33 mmol/L (21-32); Calcium, Blood 10.2 mg/dL (8.5-10.1); Chloride, Blood 100 mmol/L (98-108); Glomerular Filtration Rate >60 (60-); Glucose, Blood 78 mg/dL (70-99); Potassium, Blood 5.2 mmol/L (3.5-5.5); Sodium, Blood 137 mmol/L (136-145); Troponin I 0.024 ng/mL (0.000-0.040)
[2019-03-11 08:28] LABS: PCO2 Arterial 42.4 mmHg (35-45); PO2 Arterial 57.2 mmHg (80-100)
--- NOTE | 2019-03-11 11:02 | NUR ---
PATIENT WAS NOT DOING WELL THIS MORNING. CHANGE OF OXYGEN NEED FROM THE PATIENT HE WAS ON 2L VIA NC, HIS OXYGEN NEED INCREASED TO 10L VIA OXIMYZER. HIS CONTINUOUS BIOX WAS PLACED AND HIS CONCENTRATION DID NOT GET ABOVE 90%. DR. VILLARREAL WAS AWARE AND PATIENT WAS TRANSFERRED TO PCU WHERE HE CAN BE MONITORED CLOSER. HANDED OFF THE PATIENT TO SINCERE CHANG. MEDICATIONS WERE NOT ADMINISTERED THIS MORNING DUE TO THE PATIENT'S LETHARGY AND MENTAL STATUS. WE WERE NOT ABLE TO GET HIM AWAKE ENOUGH TO SAFELY TAKE MEDICATIONS DUE TO HIS CURRENT DIAGNOSIS OF ASPIRATION PNEUMONIA.
--- NOTE | 2019-03-11 12:30 | NUR ---
ASSUMED CARE OF PATIENT, REPORT RECIEVED FROM PAVITHRA DICKSON. PT IS RESTING COMFORTABLY ON HIS LEFT SIDE WITH EYES CLOSED RESP E/U. FAMILY AT BEDSIDE, PT DENIES NEEDS AT THIS TIME, CALL LIGHT IN REACH.
--- NOTE | 2019-03-11 15:30 | NUR ---
BP A LITTLE LOW. PT IS NOW MORE AWAKE AND IS ABLE TO STAY AWAKE TO SWALLOW PILLS. VSS. FAMILY AT BEDSIDE. PT IS HAVING SPASMS WITH MOVEMENT, FLEXARIL GIVEN. PT C/O DISCOMFORT AT IV SITE. IV DC'D. NEW IV STARTED IN YVETTE,18G.
--- NOTE | 2019-03-11 17:00 | NUR ---
CALL PLACED TO RE:BP AND MEDICATIONS. DR. VILLARREAL OK WITH HOLDING [employer]. PER OK TO UPDATE FAMILY WITH CT RESULTS. PT IS C/O PAIN. OXYCODONE GIVEN, PT DENIES OTHER NEEDS AT THIS TIME. CALL LIGHT IN REACH.
--- NOTE | 2019-03-11 20:00 | NUR ---
PT HAS DONE WELL SINCE TRANSFERRING TO PCU. OXYGEN HAS BEEN TITRATED FROM 10L DOWN TO 7L. FAMILY AT BEDSIDE. VSS. REPORT GIVEN TO RAMÍREZ GOSS RN.
[2019-03-12 04:47] LABS: BASOPHILS ABSOLUTE AUTO 0.12 K/mm3 (0.00-0.23); BASOPHILS PERCENT AUTO 1 % (0-2); EOSINOPHILS ABSOLUTE AUTO 0.16 K/mm3 (0.00-0.68); EOSINOPHILS PERCENT AUTO 1 % (0-6); Hematocrit 33.2 % (37.0-53.0); Hemoglobin 10.6 g/dL (13.5-17.5); IMMATURE GRAN ABSOLUTE AUTO 0.34 K/mm3 (0.00-0.10); IMMATURE GRAN PERCENT AUTO 2 % (0-1); LYMPHOCYTES ABSOLUTE AUTO 0.61 K/mm3 (0.84-5.20); LYMPHOCYTES PERCENT AUTO 4 % (21-46); MONOCYTES PERCENT AUTO 1 % (4-13); Mean Corpuscular HGB Conc 31.9 g/dL (31.5-36.5); Mean Corpuscular Volume 100 fL (80-100); NEUTROPHILS ABSOLUTE AUTO 15.39 K/mm3 (1.96-9.15); NEUTROPHILS PERCENT AUTO 92 % (41-73); Platelet Count 232 K/mm3 (150-400); RDW Coefficient Variation 13.6 % (11.7-14.2); RDW Standard Deviation 50.7 fL (35.1-46.3); Red Blood Cell Count 3.31 M/mm3 (4.30-5.90); White Blood Cell Count 16.82 K/mm3 (4.00-11.30)
[2019-03-12 05:02] LABS: International Normalized Ratio 1.92; Prothrombin Time Results 19.2 Sec (9.7-11.5)
[2019-03-12 05:13] LABS: Anion Gap 3 mmol/L (6-16); Blood Urea Nitrogen 27 mg/dL (8-24); Bun/Creatinine Ratio 22.7 (12.0-20.0); CO2, Blood 33 mmol/L (21-32); Calcium, Blood 8.9 mg/dL (8.5-10.1); Chloride, Blood 102 mmol/L (98-108); Creatinine, Blood 1.19 mg/dL (0.60-1.20); Glomerular Filtration Rate >60 (60-); Glucose, Blood 79 mg/dL (70-99); Magnesium, Blood 2.1 mg/dL (1.6-2.4); Potassium, Blood 4.5 mmol/L (3.5-5.5); Sodium, Blood 138 mmol/L (136-145)
--- NOTE | 2019-03-12 06:08 | NUR ---
SHIFT SUMMARY PT SLEEPING IN ROOM COMFORTABLY. NO ACUTE CHANGES IN STATUS OVERNIGHT. PT SLEPT WELL T/O NIGHT. K PAD APLIED AT STAT OF SHIFT FOR PT PAIN. PT REMAINS SLIGHTLY ALTERED AND HARD TO AWAKEN, PAIN MEDICATIONS HELD D/T PT REMAINING SLIGHTLY ALTERED. EVENING ORAL MEDS WERE HELD D/T PT BEING UNABLE TO AWAKEN ENOUGH TO SAFELY SWALLOW ORAL MEDICATIONS. IVF INFSUING IN PIV. EMERSON CATH DRAINING YELLOW URINE TO GRAVITY. RESP EVEN UNLABORED ON 7L OXIMER, RESP SLIGHTLY TACHY W/ SATS >90%. PT APPEARS TO BE RESTING COMFORTABLY. NO PHYSICAL SIGNS OF PAIN AT THIS TIME. CALL LIGHT IS WITHIN REACH. PT SPOUSE AT BEDSIDE.
--- NOTE | 2019-03-12 08:00 | NUR ---
pt laying in bed with eyes closed, he wakes and answers some questions when woke, he was able to take his po meds today with applesauce, and turn to recieve his lidocain patch, but returns to sleep immediately, lungs have insp wheeze t/o, dim in bases, resp even and unlabored, no cough noted at this time, hrirr, tele in place running afib per monitor, see strip, no edema noted, ppp+1, cap refill <3sec, vs stable, afebrile, iv site is clear and patent, btx4, abd flat soft nontender, voids via gresham at this time, attends in place for incont, skin c/w/d, maew, general weakness, holly, call light in reach.
--- NOTE | 2019-03-12 12:22 | NUR ---
pt sleeping most of the morning, is irritable, when woke. vs stable, does wake when needed. call light in reach.
--- NOTE | 2019-03-12 16:38 | NUR ---
pt much more awake now, asking for a pain pill, this was given. call light in reach.
--- NOTE | 2019-03-12 18:31 | NUR ---
pt much more awake tonight, in room states he is more like himself now. no further changes this shift, call light in reach.
[2019-03-13 03:49] LABS: BASOPHILS ABSOLUTE AUTO 0.07 K/mm3 (0.00-0.23); BASOPHILS PERCENT AUTO 1 % (0-2); EOSINOPHILS ABSOLUTE AUTO 0.12 K/mm3 (0.00-0.68); EOSINOPHILS PERCENT AUTO 1 % (0-6); Hematocrit 35.7 % (37.0-53.0); Hemoglobin 11.5 g/dL (13.5-17.5); IMMATURE GRAN PERCENT AUTO 1 % (0-1); LYMPHOCYTES ABSOLUTE AUTO 0.59 K/mm3 (0.84-5.20); LYMPHOCYTES PERCENT AUTO 4 % (21-46); MONOCYTES ABSOLUTE AUTO 0.25 K/mm3 (0.16-1.47); MONOCYTES PERCENT AUTO 2 % (4-13); Mean Corpuscular HGB 31.6 pg (26.0-34.0); Mean Corpuscular HGB Conc 32.2 g/dL (31.5-36.5); Mean Corpuscular Volume 98 fL (80-100); Mean Platelet Volume 8.9 fL (9.1-12.4); NEUTROPHILS ABSOLUTE AUTO 12.93 K/mm3 (1.96-9.15); NEUTROPHILS PERCENT AUTO 91 % (41-73); Platelet Count 222 K/mm3 (150-400); RDW Coefficient Variation 13.4 % (11.7-14.2); RDW Standard Deviation 48.9 fL (35.1-46.3); Red Blood Cell Count 3.64 M/mm3 (4.30-5.90); White Blood Cell Count 14.16 K/mm3 (4.00-11.30)
[2019-03-13 04:10] LABS: International Normalized Ratio 2.18; Prothrombin Time Results 21.5 Sec (9.7-11.5)
[2019-03-13 04:12] LABS: Anion Gap 5 mmol/L (6-16); Blood Urea Nitrogen 27 mg/dL (8-24); CO2, Blood 34 mmol/L (21-32); Calcium, Blood 9.7 mg/dL (8.5-10.1); Chloride, Blood 96 mmol/L (98-108); Creatinine, Blood 1.08 mg/dL (0.60-1.20); Glomerular Filtration Rate >60 (60-); Glucose, Blood 108 mg/dL (70-99); Potassium, Blood 4.2 mmol/L (3.5-5.5); Sodium, Blood 135 mmol/L (136-145)
--- NOTE | 2019-03-13 07:43 | NUR ---
SHIFT SUMMARY PT A&O X4 T/O SHIFT. 7L O2 VIA NC; PT DENIES SBOB, CONT. OX IN PLACE; SATS GREATER THAN 90% T/O SHIFT. PT REPOSITIONED ABLE. CHRONIC BACK PAIN MANAGED WITH K-PAD AND REPOSITIONING PT PT ALLOWED. PT C/O "HEATBURN" T/O SHIFT. TX PER EMAR; PT REFUSED ANTI-NAUSEA MEDICATIONS. HOB ELEVATED. TELEMETRY IN PLACE; A FIB PER HOSPITALITY COORDINATOR. PT IN ROOM DURING SHIFT. CALL LIGHT IN REACH; PT DEMONSTRATES USE. REPORT GIVEN TO DAY SHIFT RN.
[2019-03-13 11:03] LABS: Vancomycin, Trough 10.6 ug/mL (5.0-10.0)
--- NOTE | 2019-03-13 14:19 | NUR ---
BEGINNING OF SHIFT Assumed care of pt at 0700. Report recieved from Odalis DICKSON. Pt on 7 LPM via oxymizer at beginning of shift. At this time, pt is on 4 LPM NC. O2 sats 90% or greater. Pt visiting with family in room. Bed in lowest position. Call light in reach. Pt denies need at this time.
--- NOTE | 2019-03-13 17:41 | NUR ---
SHIFT SUMMARY Pt currently on 2.5 LPM NC. Tolerated O2 titration well. Flutter valve provided to patient. This RN educated pt on use. Pt demonstrated correct usage of flutter valve. This RN has not seen pt produce any sputum this shift. Will continue to closely monitor until care handoff and bedside report with oncoming RN.
--- NOTE | 2019-03-14 03:06 | NUR ---
ASSUMED CARE AT 1900 FROM RANDOLPH FITZGERALD. PT ON 3 LPM NC; CHRONIC PAIN IN BACK, MEDICATION ADMINISTERED PER ORDERS; ENCOURAGED PT SEVERAL TIMES TO REPOSITION FOR PAIN AND TO PREVENT PRESSURE ULCER, PT DENIED, ONLY ALLOWING STAFF ONCE TO REPOSITION; BECAME AGITATED AT TIMES WITH STAFF AND FAMILY; STATED HE WANTED MORE PAIN MEDICATIONS AND WOULD TALK TO THE DOCTOR IN THE MORNING; FAMILY STAYED IN ROOM; PT SLEPT A FEW HOURS IN THE NIGHT; WILL CONTINUE TO MONITOR AND ASSESS UNTIL HANDOFF TO DAY SHIFT RN.
[2019-03-14 04:11] LABS: BASOPHILS ABSOLUTE AUTO 0.04 K/mm3 (0.00-0.23); BASOPHILS PERCENT AUTO 0 % (0-2); EOSINOPHILS ABSOLUTE AUTO 0.04 K/mm3 (0.00-0.68); EOSINOPHILS PERCENT AUTO 0 % (0-6); Hematocrit 31.6 % (37.0-53.0); Hemoglobin 10.2 g/dL (13.5-17.5); IMMATURE GRAN ABSOLUTE AUTO 0.13 K/mm3 (0.00-0.10); IMMATURE GRAN PERCENT AUTO 1 % (0-1); LYMPHOCYTES ABSOLUTE AUTO 0.55 K/mm3 (0.84-5.20); LYMPHOCYTES PERCENT AUTO 5 % (21-46); MONOCYTES ABSOLUTE AUTO 0.38 K/mm3 (0.16-1.47); MONOCYTES PERCENT AUTO 4 % (4-13); Mean Corpuscular HGB 31.9 pg (26.0-34.0); Mean Corpuscular HGB Conc 32.3 g/dL (31.5-36.5); Mean Corpuscular Volume 99 fL (80-100); Mean Platelet Volume 8.9 fL (9.1-12.4); NEUTROPHILS ABSOLUTE AUTO 9.03 K/mm3 (1.96-9.15); NEUTROPHILS PERCENT AUTO 89 % (41-73); Platelet Count 217 K/mm3 (150-400); RDW Coefficient Variation 13.1 % (11.7-14.2); RDW Standard Deviation 47.6 fL (35.1-46.3); White Blood Cell Count 10.17 K/mm3 (4.00-11.30)
[2019-03-14 04:27] LABS: International Normalized Ratio 3.71; Prothrombin Time Results 34.9 Sec (9.7-11.5)
[2019-03-14 04:28] LABS: Anion Gap 5 mmol/L (6-16); Blood Urea Nitrogen 28 mg/dL (8-24); Bun/Creatinine Ratio 26.2 (12.0-20.0); CO2, Blood 32 mmol/L (21-32); Calcium, Blood 9.2 mg/dL (8.5-10.1); Chloride, Blood 98 mmol/L (98-108); Creatinine, Blood 1.07 mg/dL (0.60-1.20); Glomerular Filtration Rate >60 (60-); Glucose, Blood 112 mg/dL (70-99); Potassium, Blood 4.9 mmol/L (3.5-5.5); Sodium, Blood 135 mmol/L (136-145)
--- NOTE | 2019-03-14 06:38 | NUR ---
PT DID NOT SLEEP WELL; C/O PAIN; DENIED REPOSITIONING; MEDICATION PER ORDERS; V/S STABLE; PT CURRENTLY ASLEEP; WILL CONTINUE TO MONITOR AND ASSESS UNTIL HANDOFF TO DAY SHIFT RN.
--- NOTE | 2019-03-14 10:00 | NUR ---
BEGINNING OF SHIFT Assumed care of pt at 0700, with Ashley DINERO. Report recieved from Gia DICKSON and Katherin DINERO. Plan of care discussed with Dr Cruz, including bowel care and therapy. Verbal orders given by provider. Provider stated plan to enter additional orders. Pain managment discussed with provider as pt stated discontent to night staff regarding availablity of pain medications.
--- NOTE | 2019-03-14 12:12 | NUR ---
BEGINING OF SHIFT: ASSUMED CARE OF PT AT 0700, RECEIVED REPORT FROM NGA DICKSON. UPON ENTERING ROOM, PT WAS A/O AND ON 2 L OF 02 VIA NC. PT IS UNWILLING TO COOPARATE WITH REPOSITIONING AND IS REFUSING TO BE MOVED IN BED. PT HAS A EMERSON CATHETER THAT IS SHOWING CLEAR YELLOW URINE. PT HAS NOT BEEN NEEDING PAIN MEDICATIONS THIS MORNIG. PT HAS NOT HAD A BM SINCE 03/08/19, SO BOWEL CARE WAS INITIATED.PT IS VISITING WITH FAMILY, AND IS AWATING TO BE TRANSFERD TO SURGICAL FLOOR. WILL CONTINUE TO MONITOR UNTIL REPORT IS GIVEN. BED AT LOWEST LEVEL AND CALL LIGHT IS WITHIN REACH.
--- NOTE | 2019-03-14 13:50 | NUR ---
TRANSFER TO SURGICAL FLOOR PT TRANSFERED FROM PCU VIA WHEELCHAIR, 4 PERSON ASSIST INTO BED WITH MULTIPLE ATTEMPTS. UNABLE TO FOLLOW SIMPLE INSTRUCTIONS OR ASSIST WITH REPOSITIONING. REPORTS "PAIN ALL OVER." MEDICATED AND CONFORTED BY FAMILY AT BEDSIDE.
--- NOTE | 2019-03-14 16:20 | NUR ---
HYPOGLYCEMIA/CONFUSION PT CONTINUES TO BE DROWSY, CONFUSED. ABLE TO STATE NAME AND , CITY HE IS IN BUT THEN MOANS AND DOESN;T ANSWER QUESTIONS. INVOLUNTARY MUSCLE MOVEMENTS. HYPOGLYCEMIA TX AND THEN DR VILLARREAL CALLED.
--- NOTE | 2019-03-14 16:21 | NUR ---
TRANSFER Pt transferred to room 216 via wheelchair, accompanied by paola DICKSON and Charline FERRER. Pt placed in wheelchair by PT and OT. Pt transferred to surgical floor bed from wheelchair using four staff and gait belt. Pt transferred with 2 LPM NC. Report given to Vicky DICKSON by Ashley DINERO. Pt's spouse and several visitors accompanied pt during transfer.
--- NOTE | 2019-03-14 17:30 | NUR ---
HYPOGLYCEMIA/MUSCLE MOVEMENTS PT CONTINUES TO HAVE INVOLUNTARY MUSCLE MOVEMENTS IN ARMS, FACE, HANDS. MOANS AND GRIMANCES BUT CONTINUES NOT TO TALK BUT "GOD HELP ME" REPEATEDLY. CALLED MD TO DISCUSS THIS. NO NEW ORDERS AT THIS TIME. CONTINOUS BIOX IN PLACE. NO S/S OF RESPIRATORY DISTRESS. O2 SATS 90-95% ON 2 L NC,
--- NOTE | 2019-03-14 20:50 | NUR ---
PT NOTED LYING IN SEMI FOWLERS WHILE WRITHING IN BED AND MOANING. UNABLE TO REORIENT. CBG PERFORMED WITH BGL OF 66 NOTED. 0.5 AMP D50% GIVEN SIVP, TOLERATED WELL. WILL RECHECK CBG AND REEVAL. SAFETY MEASURES IN PLACE. WILL CONTINUE TO MONITOR.
--- NOTE | 2019-03-14 21:45 | NUR ---
PT NOTED LYING IN SEMI FOWLERS WHILE WRITHING IN BED AND MOANING. STATES PAIN LEVEL OF 10/10 ALL OVER. 1MG DILAUDID GIVEN SIVP. TOLERATED WELL, WILL REEVAL. SAFETY MEASURES IN PLACE. WILL CONTINUE TO MONITOR.
--- NOTE | 2019-03-14 22:30 | NUR ---
PT IS NOW MORE ALERT AND ORIENTED. VERBALIZES PAIN LEVEL OF 7/10 TO BACK AND LEFT SIDE. ABLE TO SWALLOW PAIN MEDS WITH THER REST OF HIS HS MEDS WITH SOME APPLE SAUCE. DENIES FURTHER NEEDS AT THIS TIME. SAFETY MEASURES IN PLACE. WILL CONTINUE TO MONITOR.
--- NOTE | 2019-03-15 02:15 | NUR ---
PT NOTED LYING IN SEMI FOWLERS WHILE WRITHING IN BED AND MOANING. DENIES PAIN OR DISCOMFORT, BUT STATED, "HELP ME LORD, HELP ME GOD!" CBG PERFORMED WITH BGL OF 66 NOTED. 0.5 AMP D50% GIVEN SIVP, TOLERATED WELL. WILL RECHECK CBG AND REEVAL. SAFETY MEASURES IN PLACE. WILL CONTINUE TO MONITOR.
[2019-03-15 04:56] LABS: BASOPHILS ABSOLUTE AUTO 0.07 K/mm3 (0.00-0.23); BASOPHILS PERCENT AUTO 1 % (0-2); EOSINOPHILS ABSOLUTE AUTO 0.14 K/mm3 (0.00-0.68); EOSINOPHILS PERCENT AUTO 1 % (0-6); Hematocrit 32.5 % (37.0-53.0); Hemoglobin 10.5 g/dL (13.5-17.5); IMMATURE GRAN ABSOLUTE AUTO 0.14 K/mm3 (0.00-0.10); IMMATURE GRAN PERCENT AUTO 1 % (0-1); LYMPHOCYTES ABSOLUTE AUTO 0.58 K/mm3 (0.84-5.20); LYMPHOCYTES PERCENT AUTO 6 % (21-46); MONOCYTES ABSOLUTE AUTO 0.53 K/mm3 (0.16-1.47); MONOCYTES PERCENT AUTO 6 % (4-13); Mean Corpuscular HGB 31.9 pg (26.0-34.0); Mean Corpuscular HGB Conc 32.3 g/dL (31.5-36.5); Mean Corpuscular Volume 99 fL (80-100); Mean Platelet Volume 8.9 fL (9.1-12.4); NEUTROPHILS ABSOLUTE AUTO 8.23 K/mm3 (1.96-9.15); NEUTROPHILS PERCENT AUTO 85 % (41-73); Platelet Count 214 K/mm3 (150-400); RDW Coefficient Variation 13.2 % (11.7-14.2); RDW Standard Deviation 47.9 fL (35.1-46.3); Red Blood Cell Count 3.29 M/mm3 (4.30-5.90); White Blood Cell Count 9.69 K/mm3 (4.00-11.30)
[2019-03-15 05:15] LABS: Anion Gap 5 mmol/L (6-16); Blood Urea Nitrogen 24 mg/dL (8-24); CO2, Blood 32 mmol/L (21-32); Calcium, Blood 8.5 mg/dL (8.5-10.1); Chloride, Blood 99 mmol/L (98-108); Glomerular Filtration Rate >60 (60-); Glucose, Blood 88 mg/dL (70-99); Potassium, Blood 4.5 mmol/L (3.5-5.5); Sodium, Blood 136 mmol/L (136-145)
[2019-03-15 05:17] LABS: Prothrombin Time Results 51.8 Sec (9.7-11.5)
[2019-03-15 05:23] LABS: International Normalized Ratio 5.73
--- NOTE | 2019-03-15 06:00 | NUR ---
DR. LAYTON CONTACTED WITH CRITICAL VALUE. ORDERED TO HOLD TODAYS DOSE OF COUMADIN. WILL CONTINUE TO MONITOR.
--- NOTE | 2019-03-15 06:09 | NUR ---
PHARMACY NOTIFIED OF CRITICAL INR. WILL CONTINUE TO MONITOR.
--- NOTE | 2019-03-15 06:30 | NUR ---
LYING IN HIGH FOWLERS WITH EYES CLOSED. HAS REQUIRED PAIN MANAGEMENT X3 THIS SHIFT. DENIES PAIN OR DISCOMFORT, STATES THAT HE FEELS BETTER AFTER THE NEW FENTANYL PATCH WAS PLACED. HE IS STILL MOANING, ROCKING, AND CALLING OUT, "HELP ME LORD, GOD HELP ME!" COOL WASH CLOTH IN PLACE FOR COMFORT. SAFETY MEASURES IN PLACE. WILL GIVE HAND OFF TO ONCOMING SHIFT USING SBAR.
[2019-03-15 10:19] LABS: Vancomycin, Trough 14.6 ug/mL (5.0-10.0)
--- NOTE | 2019-03-15 11:00 | NUR ---
assumed care of pt following report from previous rn david, pt and family in room, pt sitting up in recliner, tab alarm karina
--- NOTE | 2019-03-15 12:00 | NUR ---
pt transported to imaging via stretcher for CT abd
--- NOTE | 2019-03-15 12:15 | NUR ---
pt unable to obtain CT r/t infiltrated IV, will need power glide, will be given po CT contrast
--- NOTE | 2019-03-15 18:05 | NUR ---
1640- PT TRANSERRED TO IMAGING FOR CT STUDIES 1700- PT TRANSFERRED BACK TO ROOM FROM IMAGING
--- NOTE | 2019-03-15 19:37 | NUR ---
shift summary: vss, no acute changes, pt remained confused at times, was able to be redirected/oriented at times. pt followed directions to transfer from chair to bed and bed to stretcher. pt was able to state his pain level, but spoke with somewhat mumbled speech. pt followed directions to drink CT contrast, but persistent frequent reminders were necessary. Cachective movements of arms and legs persist t/o shift. pt had repeat CT this shift, results show resolving diverticulitis, no performations. pt refused to eat beyond a few bites full of lunch and dinner, encouraged PO intake. pt did drink water and contrast. pt's family in room t/o shift, called often for assistance, appears to be anxious herself of pt's condition, asked many questions. This RN educated the pt's on disease process and results of scan, CT process and prep.
--- NOTE | 2019-03-16 04:00 | NUR ---
PT GOT OOB REQUESTING TO JUST STAND AND STRETCH. NURSING ASSISTED WITH STANDING AT SIDE OF BED WITH FWW AND GAIT BELT. PT THEN SAT ON SIDE OF BED FOR A WHILE. TRANSFERED TO ORTHO CHAIR WITH STAFF ASSISTANCE, TOLERATED WELL. RESTING WITH EASE. DENIES PAIN, DISCOMFORT, OR FURTHER NEEDS AT THIS TIME. SAFETY MEASURES IN PLACE. WILL CONTINUE TO MONITOR.
--- NOTE | 2019-03-16 06:22 | NUR ---
SITTING UP IN CHAIR AT BEDSIDE WITH EYES CLOSED. AAO X3, DELAYED IN FOLLOWING COMMANDS NOTED. IMPROVEMENT IN TARDIVE DISKINESIA LIKE MOVEMENTS. COMPARED TO THE PREVIOUS ASH WORKER. DENIES FURTHER NEEDS OR WANTS AT THIS TIME. SAFETY MEASURES IN PLACE. WILL GIVE HAND OFF TO ONCOMING SHIFT USING SBAR.
--- NOTE | 2019-03-16 09:07 | NUR ---
THERAPY IN ROOM. FAMILY PRESENT.
[2019-03-16 12:35] LABS: Prothrombin Time Results 55.5 Sec (9.7-11.5)
[2019-03-16 13:04] LABS: International Normalized Ratio 6.18
--- NOTE | 2019-03-16 13:12 | NUR ---
RECENTLY RECIEVED CRITICAL LAB VALUE. DR BEEN NOTIFIED. DISCUSSED PT'S STATUS AND MEDICATIONS GIVEN. DISCUSSED WITH MEAT PULLER.
[2019-03-17 04:33] LABS: Hematocrit 28.1 % (37.0-53.0); Hemoglobin 9.3 g/dL (13.5-17.5); Mean Corpuscular HGB 31.5 pg (26.0-34.0); Mean Corpuscular HGB Conc 33.1 g/dL (31.5-36.5); Mean Platelet Volume 9.5 fL (9.1-12.4); Platelet Count 243 K/mm3 (150-400); RDW Standard Deviation 45.6 fL (35.1-46.3); Red Blood Cell Count 2.95 M/mm3 (4.30-5.90); White Blood Cell Count 6.49 K/mm3 (4.00-11.30)
[2019-03-17 04:35] LABS: Mean Corpuscular Volume 95 fL (80-100)
[2019-03-17 04:49] LABS: International Normalized Ratio 1.42; Prothrombin Time Results 14.6 Sec (9.7-11.5)
[2019-03-17 04:55] LABS: Anion Gap 7 mmol/L (6-16); Blood Urea Nitrogen 18 mg/dL (8-24); Bun/Creatinine Ratio 16.2 (12.0-20.0); CO2, Blood 29 mmol/L (21-32); Calcium, Blood 8.6 mg/dL (8.5-10.1); Chloride, Blood 96 mmol/L (98-108); Creatinine, Blood 1.11 mg/dL (0.60-1.20); Glomerular Filtration Rate >60 (60-); Glucose, Blood 127 mg/dL (70-99); Potassium, Blood 3.9 mmol/L (3.5-5.5); Sodium, Blood 132 mmol/L (136-145)
--- NOTE | 2019-03-17 07:21 | NUR ---
SHIFT SUMMARY PT A&O X4 T/O SHIFT. ABD SOFT; MED BM X1; BT X4. BACK PAIN MANAGED PER EMAR AND KPAD TO BACK, AFTER LIDOCAINE PATCH REMOVED. PT REPOSITIONED TOLERATED. UP TO TOILET WITH FWW, GAIT BELT AND SBA. DANGLE AT BEDSIDE X1. O2 VIA NC. MEPILEX DRESSING TO COCCYX. CALL LIGHT IN REACH; PT DEMONSTRATES USE. REPORT GIVEN TO DAY SHIFT RN.
--- NOTE | 2019-03-17 10:15 | NUR ---
PT MED WITH ASP PRECAUTIONS IN PLACE WITHOUT DIFF.
--- NOTE | 2019-03-17 19:34 | NUR ---
SHIFT SUMMARY PT ENC PO INTAKE. PT SAT UP IN CHAIR MOST OF DAY, THEN IN BED, THEN BACK UP FOR DINNER. PT DID NOT EAT MUCH DINNER, ENC PO INTAKE. PT DID TAKE WALK IN HALLWAY WITH ASSIST AND WALKER WITH O2 IN PLACE. SEE ADL'S. PT FAMILY IN ROOM MOST OF DAY. PT HAD EMERSON OUT EARLIER TODAY AND HAS NOT YET VOIDED. HS RN GIVEN REPORT.
--- NOTE | 2019-03-18 04:13 | NUR ---
SHIFT SUMMARY: PT A&O X4, VS WNL. RESTING MOST OF SHIFT. GIVEN 5MG OXY FOR C/O OF LEG AND BACK PAIN. PT C/O OF LEGS ITCHING. NO REDNESS NOTED. OOB SEVERAL TIMES TO BRP. ONE ASSIST W/FWW+GB. PT EDUCATED ON PT SAFETY AND REMINDED TO USE CALL LIGHT WHEN WANTING TO GET OUT OF BED. BED ALARM ON FOR SAFETY. VOIDING WELL + 1 BM. MEPILEX TO COCCYX CDI. AT BEDSIDE.
[2019-03-18 04:54] LABS: International Normalized Ratio 1.21; Prothrombin Time Results 12.6 Sec (9.7-11.5)
--- NOTE | 2019-03-18 16:32 | NUR ---
DISCHARGE SUMMARY PLAN FOR PT TO DC W/TRANSPORT AT 1700 VIA , WITH ALL PERSONAL POSSESSIONS. WILL MEET HIM AT [facility] VIA PRIVATE VEHICLE WITH SON. REPORT CALLED TO CHRISSY AT .
== END 2019-03-18 16:48 | DRG 177 ==
LOC: ER 14:16 → MEDS 17:53 → PCU 03-11 10:50 → SURS 03-14 13:46
PROVIDERS: Internal Medicine; Nurse Practitioner Acute Care; Pharmacist; Physician Assistant; ADMIT Internal Medicine
DX: J69.0 Pneumonitis due to inhalation of food and vomit (principal); J96.01 Acute respiratory failure with hypoxia; G92 Toxic encephalopathy; K57.20 Diverticulitis of large intestine with perforation and abscess without bleeding; M80.08XA Age-related osteoporosis with current pathological fracture, vertebra(e), initial encounter for fracture; Z79.82 Long term (current) use of aspirin; Z79.01 Long term (current) use of anticoagulants; Z87.891 Personal history of nicotine dependence; I25.2 Old myocardial infarction; Z79.52 Long term (current) use of systemic steroids; M10.9 Gout, unspecified; I48.2 Chronic atrial fibrillation; E78.5 Hyperlipidemia, unspecified; N18.1 Chronic kidney disease, stage 1; E11.22 Type 2 diabetes mellitus with diabetic chronic kidney disease; F11.10 Opioid abuse, uncomplicated; Z86.73 Personal history of transient ischemic attack (TIA), and cerebral infarction without residual deficits; E87.6 Hypokalemia; E16.2 Hypoglycemia, unspecified; Z79.4 Long term (current) use of insulin; I12.9 Hypertensive chronic kidney disease with stage 1 through stage 4 chronic kidney disease, or unspecified chronic kidney disease
CPT/HCPCS: 36415; 36600; 71045; 71046; 71250; 72131; 74176; 74177; 80048; 80053; 80069; 80202; 81001; 82272; 82803; 82947; 83735; 84145; 84484; 85014; 85018; 85025; 85027; 85610; 86900; 86901; 87070; 87086; 87205; 92526; 92610; 94640; 94660; 94760; 94762; 96361; 96365-59; 96375; 97110; 97116; 97162; 97166; 97530; 97535; 99285-25; J0295; J0456; J0744; J1170; J1720; J1940; J2185; J2765; J3010; J3370; J3430; J7030; J7042; J7050; J7120; J7512; P9059; Q9967

== ENCOUNTER 2019-03-20 07:23 | Inpatient (IN) | payer OTHER ==
[~2019-03-20] VITALS: Ht 167.6 cm; Wt 65.7 kg
[~2019-03-20 07:23] MED LIST changes: +ERGO400 PO; +FLUT1DIS5 INH; +GABA100 PO; +LOSA50 PO
[2019-03-20] MEDS ORDERED: Tylenol325 MG PO (08:10)
[2019-03-20] MEDS ORDERED: Florastor250 MG PO (08:15)
[2019-03-20] MEDS ORDERED: LOSA50 PO (08:15)
[2019-03-20] MEDS ORDERED: GAVILAX17 GM PO (08:16)
[2019-03-20] MEDS ORDERED: Humalog100 UNIT/1 SC (08:17)
[2019-03-20] MEDS ORDERED: INSULANPEN SC (08:18)
[2019-03-20] MEDS ORDERED: COMBIVENT RESPIM4 GM INH (08:18)
[2019-03-20] MEDS ORDERED: LIDO700A20 TOP (08:19)
[2019-03-20 08:20] LABS: BASOPHILS ABSOLUTE AUTO 0.05 K/mm3 (0.00-0.23); BASOPHILS PERCENT AUTO 1 % (0-2); EOSINOPHILS ABSOLUTE AUTO 0.22 K/mm3 (0.00-0.68); EOSINOPHILS PERCENT AUTO 3 % (0-6); Hematocrit 33.2 % (37.0-53.0); Hemoglobin 10.8 g/dL (13.5-17.5); IMMATURE GRAN ABSOLUTE AUTO 0.14 K/mm3 (0.00-0.10); IMMATURE GRAN PERCENT AUTO 2 % (0-1); LYMPHOCYTES ABSOLUTE AUTO 1.08 K/mm3 (0.84-5.20); LYMPHOCYTES PERCENT AUTO 13 % (21-46); MONOCYTES ABSOLUTE AUTO 0.36 K/mm3 (0.16-1.47); MONOCYTES PERCENT AUTO 4 % (4-13); Mean Corpuscular HGB 31.5 pg (26.0-34.0); Mean Corpuscular HGB Conc 32.5 g/dL (31.5-36.5); Mean Corpuscular Volume 97 fL (80-100); Mean Platelet Volume 8.8 fL (9.1-12.4); NEUTROPHILS ABSOLUTE AUTO 6.39 K/mm3 (1.96-9.15); NEUTROPHILS PERCENT AUTO 78 % (41-73); Platelet Count 268 K/mm3 (150-400); RDW Coefficient Variation 13.6 % (11.7-14.2); RDW Standard Deviation 48.2 fL (35.1-46.3); Red Blood Cell Count 3.43 M/mm3 (4.30-5.90); White Blood Cell Count 8.24 K/mm3 (4.00-11.30)
[2019-03-20] MEDS ORDERED: ROXICODONE5 MG PO (08:20)
[2019-03-20] MEDS ORDERED: OMEPRAZOLE MAGN20 MG PO (08:20)
[2019-03-20] MEDS ORDERED: TUMS500 MG PO (08:21)
[2019-03-20 08:31] LABS: Alanine Aminotransfer (ALT/SGP 63 U/L (12-78); Albumin, Blood 1.9 g/dL (3.4-5.0); Albumin/Globulin Ratio 0.4 (0.8-1.8); Alk Phos 104 U/L (50-136); Anion Gap 4 mmol/L (6-16); Aspartate Aminotrans (AST/SGOT 45 U/L (12-37); Bilirubin, Total 1.2 mg/dL (0.1-1.0); Blood Urea Nitrogen 13 mg/dL (8-24); Bun/Creatinine Ratio 10.6 (12.0-20.0); CO2, Blood 32 mmol/L (21-32); Calcium, Blood 8.9 mg/dL (8.5-10.1); Chloride, Blood 99 mmol/L (98-108); Creatinine, Blood 1.23 mg/dL (0.60-1.20); Globulin, Blood 4.3 g/dL (2.2-4.0); Glomerular Filtration Rate >60 (60-); Glucose, Blood 91 mg/dL (70-99); Potassium, Blood 4.6 mmol/L (3.5-5.5); Sodium, Blood 135 mmol/L (136-145); Total Protein, Blood 6.2 g/dL (6.4-8.2)
--- NOTE | 2019-03-20 17:58 | NUR ---
PT UPON ARRIVAL WAS UNABLE TO VERBALIZE AND DID NOT SEEM TO UNDERSTAND ANYTHING WHEN ASKED. PT HAS BECOME MUCH MORE ALERT AND EVEN ATTEMPTED TO TALK WITH THIS SHIRT CLEANER, EVEN THROUGH NO WORDS CAME OUT. PT WAS ABLE TO BE ASKED TO MOVE LIMBS AND COOPERATED ASKED. PT COULD NOT RAISE R ARM, BUT WAS ABLE TO DO A UNIVERSITY PRESIDENT ON HAND. PT WAS ALSO ABLE TO LIFT AND BEND LEGS AND WOULD TRY TO HELP WHEN TURNED. PT CAME UP ON RA, BUT HIS O2 WOULD DROP TO 88% SO 1l OF O2 WAS ADDED WITH NASAL CANULA. PT TREATED FOR PAIN PER EMAR. WILL CONTINUE TO MONITOR.
[2019-03-21 05:26] LABS: BASOPHILS ABSOLUTE AUTO 0.04 K/mm3 (0.00-0.23); BASOPHILS PERCENT AUTO 1 % (0-2); EOSINOPHILS ABSOLUTE AUTO 0.21 K/mm3 (0.00-0.68); EOSINOPHILS PERCENT AUTO 3 % (0-6); Hematocrit 34.2 % (37.0-53.0); Hemoglobin 10.8 g/dL (13.5-17.5); IMMATURE GRAN PERCENT AUTO 1 % (0-1); LYMPHOCYTES ABSOLUTE AUTO 1.06 K/mm3 (0.84-5.20); LYMPHOCYTES PERCENT AUTO 15 % (21-46); MONOCYTES PERCENT AUTO 4 % (4-13); Mean Corpuscular HGB Conc 31.6 g/dL (31.5-36.5); Mean Corpuscular Volume 98 fL (80-100); Mean Platelet Volume 9.4 fL (9.1-12.4); NEUTROPHILS ABSOLUTE AUTO 5.36 K/mm3 (1.96-9.15); NEUTROPHILS PERCENT AUTO 76 % (41-73); Platelet Count 229 K/mm3 (150-400); RDW Coefficient Variation 13.6 % (11.7-14.2); RDW Standard Deviation 48.9 fL (35.1-46.3); Red Blood Cell Count 3.48 M/mm3 (4.30-5.90); White Blood Cell Count 7.07 K/mm3 (4.00-11.30)
[2019-03-21 05:42] LABS: International Normalized Ratio 3.6
[2019-03-21 05:57] LABS: Anion Gap 9 mmol/L (6-16); Blood Urea Nitrogen 12 mg/dL (8-24); Bun/Creatinine Ratio 11.1 (12.0-20.0); CO2, Blood 23 mmol/L (21-32); Calcium, Blood 8.7 mg/dL (8.5-10.1); Chloride, Blood 103 mmol/L (98-108); Creatinine, Blood 1.08 mg/dL (0.60-1.20); Glomerular Filtration Rate >60 (60-); Glucose, Blood 61 mg/dL (70-99); Potassium, Blood 4.6 mmol/L (3.5-5.5); Sodium, Blood 135 mmol/L (136-145)
--- NOTE | 2019-03-21 07:25 | NUR ---
NOC SHIFT SUMMARY PT PLEASANT AND COOPERATIVE WITH CARE. HE IS ABLE TO MOVE ALL 4 EXTREMETIES. UNABLE TO SPEAK. DOES HAVE A DIME SIZED PRESSURE SORE ON BUTTOX, MEPELEX APPLIED AND PT TURNED THROUGH NIGHT. FAMILY IN ROOM. PT WAS TREATED FOR PAIN DURING THE NIGHT. FAMILY RELIED UPON TO INTERPERATE PAIN LEVEL. HE IS ABLE TO FOLLOW SIMPLE COMMANDS. VSS. REPORT TO ONCOMING RN.
[2019-03-21 12:38] LABS: CHOL/HDL RATIO 3.7; Cholesterol 101 mg/dL (50-200); HDL Cholesterol 27 mg/dL (>39); LDL/HDL RATIO 1.8; Low Density Lipoprotein Chol 50 mg/dL (0-110); Triglycerides 121 mg/dL (30-160); Very Low Density Lipoprot Chol 24 mg/dL (6-32)
--- NOTE | 2019-03-22 07:25 | NUR ---
SHIFT SUMMARY PT AWAKE ON/OFF T/O NIGHT. ALERT, HAS APHASIA & IS UNABLE TO ANSWER QUESTIONS, DOES FOLLOW SIMPLE COMMANDS SUCH WIGGLING TOES OR STICK OUT TOUNGE. NO S/S OF NAUSEA OR SOB. FAMILY MEMBERS INFORM WHEN PT IS IN DISCOMFORT/PAIN & HE SHOWS MANY NON-VERBAL S/S OF PAIN SUCH GRIMACING, RESTLESSNESS, MOANING, BRACING & WAS MEDICATED W/TYLENOL & FENTANYL PER ORDERS. HAS EQUAL BLUEPRINT TRIMMER W/HANDS & BLE, DOES APPEAR TO HAVE SOME RIGHT SIDE NEGLECT W/TURNING HEAD WHEN SOMEONE IS TALKING TO HIM & FAVORS TURNING TO THE LEFT. CALL LIGHT IS IN REACH.
--- NOTE | 2019-03-22 18:23 | NUR ---
PATIENT CONTINUES TO IMPROVE, FAMILY AT BEDSIDE ASSISTING WITH CARE. R SIDED WEAKNESS HAS RESOLVED, CONTINUES TO HAVE SOME R SIDED NEGLECT. STARTING TO SAY A FEW WORDS, AND WAS ABLE TO VOICE PAIN TODAY. FENTANYL AND TYLENOL GIVEN TO TREAT. VSS THIS SHIFT, NOW ON RA. TOLERATING MECHANICAL SOFT DIET WITH MEDS IN APPLESAUCE. PATIENT HAVING SOME LOOSE STOOLS AND HAS SOME INCONTINENCE. 20G IV TO L FA WNL AND SL. FAMILY CALLS APPROPRIATELY FOR ASSISTANCE.
[2019-03-23 06:33] LABS: BASOPHILS ABSOLUTE AUTO 0.06 K/mm3 (0.00-0.23); BASOPHILS PERCENT AUTO 1 % (0-2); EOSINOPHILS ABSOLUTE AUTO 0.26 K/mm3 (0.00-0.68); EOSINOPHILS PERCENT AUTO 4 % (0-6); Hematocrit 32.6 % (37.0-53.0); Hemoglobin 10.6 g/dL (13.5-17.5); IMMATURE GRAN PERCENT AUTO 1 % (0-1); LYMPHOCYTES ABSOLUTE AUTO 1.29 K/mm3 (0.84-5.20); LYMPHOCYTES PERCENT AUTO 19 % (21-46); MONOCYTES ABSOLUTE AUTO 0.44 K/mm3 (0.16-1.47); MONOCYTES PERCENT AUTO 6 % (4-13); Mean Corpuscular HGB 30.5 pg (26.0-34.0); Mean Corpuscular HGB Conc 32.5 g/dL (31.5-36.5); Mean Platelet Volume 8.7 fL (9.1-12.4); NEUTROPHILS ABSOLUTE AUTO 4.82 K/mm3 (1.96-9.15); NEUTROPHILS PERCENT AUTO 69 % (41-73); Platelet Count 219 K/mm3 (150-400); RDW Coefficient Variation 13.8 % (11.7-14.2); RDW Standard Deviation 46.8 fL (35.1-46.3); Red Blood Cell Count 3.47 M/mm3 (4.30-5.90); White Blood Cell Count 6.97 K/mm3 (4.00-11.30)
[2019-03-23 06:34] LABS: Mean Corpuscular Volume 94 fL (80-100)
[2019-03-23 06:51] LABS: Anion Gap 6 mmol/L (6-16); Blood Urea Nitrogen 11 mg/dL (8-24); Bun/Creatinine Ratio 12.6 (12.0-20.0); CO2, Blood 26 mmol/L (21-32); Calcium, Blood 8.4 mg/dL (8.5-10.1); Chloride, Blood 104 mmol/L (98-108); Creatinine, Blood 0.88 mg/dL (0.60-1.20); Glomerular Filtration Rate >60 (60-); Glucose, Blood 134 mg/dL (70-99); Sodium, Blood 136 mmol/L (136-145)
[2019-03-23 07:02] LABS: Prothrombin Time Results 55.5 Sec (9.7-11.5)
[2019-03-23 07:14] LABS: International Normalized Ratio 6.18
--- NOTE | 2019-03-23 07:34 | NUR ---
call light in reach, family in room helping with care, medicated as prescribed, saline locked, dressing changed on IV, room air, walking rounds completed with day staff
[2019-03-23 09:25] LABS: Prothrombin Time Results 55.5 Sec (9.7-11.5)
[2019-03-23 09:31] LABS: International Normalized Ratio 6.18
--- NOTE | 2019-03-23 17:08 | NUR ---
SHIFT SUMMARY PATIENT SWITCHED FROM IV TO ORAL PAIN MEDICATION. APPEARS TO HAVE LONGER PAIN RELIEF WITH THE ORAL SUPPLEMENTATION. FAMILY AT BEDSIDE. WORKED WITH PT/OT. NO ACUTE ISSUES NOTED.
[2019-03-24 05:32] LABS: International Normalized Ratio 1.48; Prothrombin Time Results 15.1 Sec (9.7-11.5)
--- NOTE | 2019-03-24 07:16 | NUR ---
family at bed side, call light in reach, saline locked, room air, more communicative this shift than last (smiling, laughing)
--- NOTE | 2019-03-24 18:34 | NUR ---
SHIFT SUMMARY PATIENT FAMILY HAS BEEN IN THROUGHOUT THE DAY. CURRENTLY SITTING UP IN CHAIR. TOLERATING PILLS WHOLE IN APPLESAUCE. MINIMAL WORDS SPOKE. RECOGNIZES FAMILY AND FRIENDS VISITING.
[2019-03-25 05:14] LABS: International Normalized Ratio 1.19; Prothrombin Time Results 12.4 Sec (9.7-11.5)
--- NOTE | 2019-03-25 07:22 | NUR ---
family at bedside, call light in reach, saline locked, room air, pain controlled with medication, facial expressions for visitors, able to verbalize some desires
--- NOTE | 2019-03-25 18:56 | NUR ---
SHIFT SUMMARY EXPRESSIVE APHASIA NOTED. MULTIPLE FAMILY IN ROOM AND ATTENTIVE. UP IN CHAIR FOR MOST OF SHIFT. CBG'S AC. VSS. COUMADIN DOSING DISCUSSED WITH DR. MONTES. INR NOT AT THERAPEUTIC LEVEL DR. CAMACHO AWARE. MEDICATED FOR LOWER BACK PAIN. EATING AND DRINKING WELL. SPUTUM CULTURE NEEDED.AWAITING PLACEMENT AT [facility].
[2019-03-26 05:51] LABS: International Normalized Ratio 1.3; Prothrombin Time Results 13.5 Sec (9.7-11.5)
--- NOTE | 2019-03-26 06:07 | NUR ---
SHIFT SUMMARY PT SLEPT WELL T/O NIGHT. ALERT W/EXPRESSIVE APHASIA, ABLE TO MOAN/GIVE THUMBS UP OR NOD HEAD YES/NO & FOLLOWS DIRECTIONS. VSS. NO S/S OF N/V/D OR SOB. MEDICATED 2X W/OXYCODONE PER ORDERS DUE TO MANY NON-VERBAL S/S OF PAIN. PT HAS STRONG EQUAL ASSISTANT CORPORATE CONTROLLER & PEDAL PULSES. FAMILY HAS BEEN @BEDSIDE T/O NIGHT & ASSIST PT W/CARE. CALL LIGHT IS IN REACH.
--- NOTE | 2019-03-26 14:12 | NUR ---
DISCHARGE SUMMARY [facility] PT LEFT ROOM AT 1343. REPORT CALLED TO ALESIA AT 1345. PRESCRIPTION FOR PAIN MED FAXED AT THIS TIME. PT LEFT ROOM VIA WHEELCHAIR AND TRANSPORT ESCORT. IV DC'D AND BELONGINGS RETURNED.
[2019-03-26] MEDS ORDERED: ATOR40TA PO (14:29)
[2019-03-26] MEDS ORDERED: Aspirin EC325 MG PO (14:30)
== END 2019-03-26 13:45 | DRG 65 ==
LOC: ER 07:23 → MEDS 09:28 → ER 11:08 → MEDS 11:08
PROVIDERS: Emergency Medicine; Internal Medicine; ADMIT Hospitalist
DX: I63.9 Cerebral infarction, unspecified (principal); G93.49 Other encephalopathy; E78.5 Hyperlipidemia, unspecified; I48.2 Chronic atrial fibrillation; J44.9 Chronic obstructive pulmonary disease, unspecified; M10.9 Gout, unspecified; Z79.4 Long term (current) use of insulin; R47.01 Aphasia; Z79.01 Long term (current) use of anticoagulants; I12.9 Hypertensive chronic kidney disease with stage 1 through stage 4 chronic kidney disease, or unspecified chronic kidney disease; E11.22 Type 2 diabetes mellitus with diabetic chronic kidney disease; N18.9 Chronic kidney disease, unspecified; Z86.73 Personal history of transient ischemic attack (TIA), and cerebral infarction without residual deficits; K21.9 Gastro-esophageal reflux disease without esophagitis; Z87.891 Personal history of nicotine dependence; G83.21 Monoplegia of upper limb affecting right dominant side; M54.5 Low back pain; G89.29 Other chronic pain; I25.2 Old myocardial infarction; R40.2422 Glasgow coma scale score 9-12, at arrival to emergency department
CPT/HCPCS: 36415; 70450; 80048; 80053; 80061; 82947; 85025; 85610; 87081; 92507; 92523; 92526; 92610; 93005; 93010; 93306; 93880; 96360; 97110; 97116; 97162; 97166; 97530; 97535; 99285-25; J3010; J3430; J3480

== ENCOUNTER 2019-03-29 18:58 | Inpatient (IN) | payer OTHER ==
[~2019-03-29] VITALS: Ht 165.1 cm; Wt 65.6 kg
[~2019-03-29 18:58] MED LIST changes: +Aspirin EC325 MG PO; +COMBIVENT RESPIM4 GM INH; +Florastor250 MG PO; +GAVILAX17 GM PO; +Humalog100 UNIT/1 SC; +LIDO700A20 TOP; +OMEPRAZOLE MAGN20 MG PO; +ROXICODONE5 MG PO; +TUMS500 MG PO; +Tylenol325 MG PO
[2019-03-29] MEDS ORDERED: Milk Of Ma400 MG/5 M PO (20:51)
[2019-03-29] MEDS ORDERED: BISA10S PR (20:52)
[2019-03-29 21:10] LABS: BASOPHILS ABSOLUTE AUTO 0.11 K/mm3 (0.00-0.23); BASOPHILS PERCENT AUTO 1 % (0-2); EOSINOPHILS ABSOLUTE AUTO 0.13 K/mm3 (0.00-0.68); EOSINOPHILS PERCENT AUTO 1 % (0-6); Hematocrit 30.1 % (37.0-53.0); Hemoglobin 9.6 g/dL (13.5-17.5); IMMATURE GRAN ABSOLUTE AUTO 0.26 K/mm3 (0.00-0.10); IMMATURE GRAN PERCENT AUTO 2 % (0-1); LYMPHOCYTES ABSOLUTE AUTO 2.52 K/mm3 (0.84-5.20); LYMPHOCYTES PERCENT AUTO 14 % (21-46); MONOCYTES ABSOLUTE AUTO 1.41 K/mm3 (0.16-1.47); MONOCYTES PERCENT AUTO 8 % (4-13); Mean Corpuscular HGB 30.4 pg (26.0-34.0); Mean Corpuscular HGB Conc 31.9 g/dL (31.5-36.5); Mean Corpuscular Volume 95 fL (80-100); NEUTROPHILS ABSOLUTE AUTO 13.02 K/mm3 (1.96-9.15); NEUTROPHILS PERCENT AUTO 75 % (41-73); Platelet Count 297 K/mm3 (150-400); RDW Coefficient Variation 14.9 % (11.7-14.2); RDW Standard Deviation 51.3 fL (35.1-46.3); Red Blood Cell Count 3.16 M/mm3 (4.30-5.90); White Blood Cell Count 17.45 K/mm3 (4.00-11.30)
[2019-03-29 21:25] LABS: International Normalized Ratio 3.28; Prothrombin Time Results 31.2 Sec (9.7-11.5)
[2019-03-29 21:27] LABS: Albumin, Blood 1.8 g/dL (3.4-5.0); Albumin/Globulin Ratio 0.4 (0.8-1.8); Bun/Creatinine Ratio 21.5 (12.0-20.0); Calcium, Blood 8.9 mg/dL (8.5-10.1); Creatinine, Blood 1.63 mg/dL (0.60-1.20); Globulin, Blood 4.9 g/dL (2.2-4.0); Potassium, Blood 5.3 mmol/L (3.5-5.5); Total Protein, Blood 6.7 g/dL (6.4-8.2)
[2019-03-30 02:07] LABS: Source, Urine Voided
[2019-03-30 02:09] LABS: Blood, Urine 1+ (Neg); Glucose Qualitative, Urine 1+ (Neg); Ketones, Urine 1+ (Neg); Leukocyte Esterase, Urine 1+ (Neg); Nitrite, Urine Neg (Neg); Protein, Urine 3+ (Neg); Specific Gravity, Urine 1.025 (1.003-1.022); Urobilinogen, Urine 1+ (Normal)
[2019-03-30 02:15] LABS: Bilirubin, Urine 1+ (Neg)
[2019-03-30 02:21] LABS: Amorphous Mod ({null, 0-Heavy}); Appearance, Urine Hazy (Clear); Bacteria Many /hpf; Color, Urine Amber (P-Yellow); Red Blood Cells, Urine 0-2 /hpf (0-2); Squamous Epithelial Cells Few /hpf (Few)
[2019-03-30] MEDS ORDERED: TUMS500 MG PO (02:24)
[2019-03-30 05:18] LABS: BASOPHILS ABSOLUTE AUTO 0.11 K/mm3 (0.00-0.23); BASOPHILS PERCENT AUTO 1 % (0-2); EOSINOPHILS ABSOLUTE AUTO 0.38 K/mm3 (0.00-0.68); EOSINOPHILS PERCENT AUTO 3 % (0-6); Hematocrit 27.6 % (37.0-53.0); Hemoglobin 8.7 g/dL (13.5-17.5); IMMATURE GRAN ABSOLUTE AUTO 0.21 K/mm3 (0.00-0.10); IMMATURE GRAN PERCENT AUTO 2 % (0-1); LYMPHOCYTES PERCENT AUTO 8 % (21-46); MONOCYTES ABSOLUTE AUTO 1.18 K/mm3 (0.16-1.47); MONOCYTES PERCENT AUTO 9 % (4-13); Mean Corpuscular HGB 30.6 pg (26.0-34.0); Mean Corpuscular HGB Conc 31.5 g/dL (31.5-36.5); Mean Corpuscular Volume 97 fL (80-100); Mean Platelet Volume 8.6 fL (9.1-12.4); NEUTROPHILS ABSOLUTE AUTO 10.59 K/mm3 (1.96-9.15); NEUTROPHILS PERCENT AUTO 78 % (41-73); Platelet Count 263 K/mm3 (150-400); RDW Coefficient Variation 14.9 % (11.7-14.2); RDW Standard Deviation 53.1 fL (35.1-46.3); Red Blood Cell Count 2.84 M/mm3 (4.30-5.90); White Blood Cell Count 13.57 K/mm3 (4.00-11.30)
[2019-03-30 05:38] LABS: Bun/Creatinine Ratio 22.6 (12.0-20.0); Calcium, Blood 8.5 mg/dL (8.5-10.1); Creatinine, Blood 1.37 mg/dL (0.60-1.20); Magnesium, Blood 2.3 mg/dL (1.6-2.4); Potassium, Blood 5.1 mmol/L (3.5-5.5)
[2019-03-30 05:44] LABS: International Normalized Ratio 3.87
[2019-03-30 05:50] LABS: Prothrombin Time Results 36.3 Sec (9.7-11.5)
--- NOTE | 2019-03-30 07:56 | NUR ---
03/30/19 0600 AND FAMILY MEMBER AT BEDSIDE ALL SHIFT. VITALS STABLE. MEDICATED TWICE FOR BACK DISCOMFORT. MEDS GIVEN WITH APPLESAUCE. REPOSITIONED Q 2 HOURS. SEEE PICTURES OF SKIN ISSUES AND MEPILEX DRESSING TO COCCYX AREA. HX OF CVA WITH APHASIA NOTED. RN PAGED HOSPITALIST FOR SEDATIVE FOR CI SCAN PT HAS BEEN RESTLESS IN BED ALL SHIFT. PAGED MD THREE TIMES. HE HAS BEEN INVOLVED WITH NUMEROUS CODES/ISSUES IN ER. RN NOTIFIED RIB STIFFENER AND HEEL DIPPERAYLEEN OF EVENTS.
--- NOTE | 2019-03-30 10:20 | NUR ---
Initial Visit: Palliative Care Consult for Advanced Care Planning, Goals of Care, and Symptom Management. Pt is non verbal, difficult to assess level of understanding and orientation. Pt appears to be in pain as evidenced by grimacing, holding his right lower abdomen, and moaning. FLACC score is 5/10. Pt's Rosa, and Pt's sister in law Siri present during visit. Engaged in therapeutic discussion regarding goals of care. Pt lives at home with his Rosa and their son. Rosa reports Pt is of Shinto landy but has not practiced in quite some time. Discussed prognosis of Pt not eating and listened as family expressed concerns. Educated Pt and family on option for hospice including philosophy of hospice. Family reports that they would like to have discussion with son and present options of continued treatment or hospice. Family appears to be overwhelmed at this point and this RN ended conversation. Family is agreeable for palliative care to continue with visit tomorrow. Dr Moore visited Pt and family immediately after palliative care. He reports educating Pt and family of prognosis and options for treatment and hospice as well. Dr Moore reports he will order simethicone in hopes to manage right lower quadrant pain. Spoke with Pt's bedside nurse Nicole and she reports no concerns at this time. Plan: Palliative Care will follow for symptom management, and therapeutic visits.
--- NOTE | 2019-03-30 15:47 | NUR ---
Received call from Pt's bedside nurse [place] reporting Pt's family is considering hospice but have questions. Arrived to Pt's room with Pt's Rosa, son Petar, and grandson present during visit. Son Petar inquires about whether Pt can still receive treatment for his pneumonia if he goes on hospice. Instructed Petar this RN will investigate this question and report back. Also educated family on hospice philosophy with V/U made by family. Spoke with animal care assistant Slime regarding family question of receiving antibiotics for pneumonia. Slime calls both [facility] and [facility]. Both report treatment is considered comfort measures and will cover treatment. Instructed Slime palliative care will keep her informed of family's decision. Informed Pt's son Petar of treatment coverage. Educated Petar on the risk of recurrent pneumonia due to possible aspiration. Petar reports she will discuss further with Pt's before making a decision. Palliative Care will remain available.
--- NOTE | 2019-03-30 17:16 | NUR ---
SHIFT SUMMARY FAMILY AT BEDSIDE AT ALL TIMES. PT ASSISTED UP TO RECLINER CHAIR BY FAMILY AND TOLERATED FOR APPROXIMATELY AN HOUR. ATE BITES OF HIS LUNCH FOR SON WHICH FAMILY REPORTS HE HASN'T BEEN EATING ANYTHING FOR SEVERAL DAYS. ESSENTIALLY NONVERBAL BUT ABLE TO SAY PAIN MED AND POINT TO R ABDOMEN WITH A POSSIBILITY OF HIM TRYING TO POINT TO HIS BACK. FAMILY IN DISCUSSIION ABOUT POSSIBLE HOME WITH HOSPICE. PALLIATIVE CARE IN 2 TIMES TO TALK WITH THEM.
[2019-03-31 05:30] LABS: Prothrombin Time Results 37.6 Sec (9.7-11.5)
[2019-03-31 05:39] LABS: International Normalized Ratio 4.03
--- NOTE | 2019-03-31 05:57 | NUR ---
SHIFT SUMMARY PATIENT IS MOSTLY NON-VERBAL. PT APPEARED TO BE IN PAIN THROUGHOUT THE NIGHT, PT MOANED AND WAS RESTLESS, AT TIMES PATIENT WILL NOD YES OR NO WITH QUESTIONS. SON AT BEDSIDE. USES URINAL. VITAL SIGNS STABLE. LAB CALLED AND REPORTED A CRITICAL INR LEVEL-SEE CHART. NOTIFIED CHARGE AND THEN PHARMACIST PER CHARGE REQUEST.
--- NOTE | 2019-03-31 10:48 | NUR ---
Pt visit this AM. Pt is resting in bed and is holding the right side of abdomen. Facial grimacing and moaing noted. Flacc score is 5/10. Pt's Rosa and sister in law Siri present during visit. Listened as family expressed concerns and wishes. Family has chosen for Pt to go home with [facility]. Reinforced education on hospice philosophy with V/U made by family. Family requests to have hospital bed, BSC, BST, and oxygen delivered before Pt arrives home. Dr Moore enters room towards end of visit. Reported to Dr Moore of family's decision and request to have discharge delayed until at least tomorrow in order for family to prepare for Pt's arrival. Dr Moore is agreeable. Dr Moore also educated family on code status and family is agreeable for Pt's code status to be changed to DNR. Spoke with vp care management Slime and reported request for [facility] and list of equipment to be delivered before Pt's discharge. Plan: Pt will be discharged tomorrow on hospice. Dr Moore will also write prescription for oral antibiotics to treat pneumonia upon discharge. Palliative Care will remain available.
--- NOTE | 2019-03-31 17:36 | NUR ---
SHIFT SUMMARY PT TOOK A SHOWER THIS AFTERNOON BUT HAD DIFFICULTY FOLLOWING DIRECTIONS. REQUIRE MODERATE ASSISTANCE USING FWW DUE TO GRABBING AT EVERYTHING WITHIN HIS REACH. SLEPT AFTER SHOWER FOR SEVERAL HOURS. FAMILY AT BEDSIDE THROUGH DAY. PLANS FOR PT TO DISCHARGE TOMORROW HOME ON HOSPICE.
[2019-04-01 05:18] LABS: BASOPHILS ABSOLUTE AUTO 0.08 K/mm3 (0.00-0.23); BASOPHILS PERCENT AUTO 1 % (0-2); EOSINOPHILS ABSOLUTE AUTO 0.63 K/mm3 (0.00-0.68); EOSINOPHILS PERCENT AUTO 6 % (0-6); Hemoglobin 8.1 g/dL (13.5-17.5); IMMATURE GRAN ABSOLUTE AUTO 0.16 K/mm3 (0.00-0.10); IMMATURE GRAN PERCENT AUTO 2 % (0-1); LYMPHOCYTES ABSOLUTE AUTO 1.46 K/mm3 (0.84-5.20); LYMPHOCYTES PERCENT AUTO 14 % (21-46); MONOCYTES ABSOLUTE AUTO 0.79 K/mm3 (0.16-1.47); MONOCYTES PERCENT AUTO 7 % (4-13); Mean Corpuscular HGB 30.3 pg (26.0-34.0); Mean Corpuscular HGB Conc 31.2 g/dL (31.5-36.5); Mean Corpuscular Volume 97 fL (80-100); Mean Platelet Volume 8.8 fL (9.1-12.4); NEUTROPHILS ABSOLUTE AUTO 7.61 K/mm3 (1.96-9.15); NEUTROPHILS PERCENT AUTO 71 % (41-73); Platelet Count 290 K/mm3 (150-400); RDW Coefficient Variation 14.7 % (11.7-14.2); RDW Standard Deviation 52.3 fL (35.1-46.3); Red Blood Cell Count 2.67 M/mm3 (4.30-5.90); White Blood Cell Count 10.73 K/mm3 (4.00-11.30)
[2019-04-01 05:36] LABS: International Normalized Ratio 3.9; Prothrombin Time Results 36.5 Sec (9.7-11.5)
[2019-04-01 06:04] LABS: Anion Gap 4 mmol/L (6-16); Blood Urea Nitrogen 26 mg/dL (8-24); Bun/Creatinine Ratio 22.2 (12.0-20.0); CO2, Blood 28 mmol/L (21-32); Calcium, Blood 8.5 mg/dL (8.5-10.1); Chloride, Blood 105 mmol/L (98-108); Creatinine, Blood 1.17 mg/dL (0.60-1.20); Glomerular Filtration Rate >60 (60-); Glucose, Blood 80 mg/dL (70-99); Potassium, Blood 4.6 mmol/L (3.5-5.5); Sodium, Blood 137 mmol/L (136-145)
--- NOTE | 2019-04-01 06:32 | NUR ---
SHIFT SUMMARY PT AWAKE MOST OF NIGHT & HAD DIFFICULTY FALLING ASLEEP, ONLY A COUPLE HOURS OF SLEEP T/O NIGHT. ALERT W/EXPRESSIVE APHASIA, NODS HEAD YES/NO TO QUESTIONS & STATES AN OCCASIONAL WORD, FOLLOWS DIRECTIONS. REPORTS PAIN IN BACK & SHOWS MANY S/S OF PAIN INCLUDING MOANING, GRIMACING, RESTLESSNESS, HOLDING BACK & STATING THE WORS "PAIN," MEDICATED PER ORDERS. SON HAS BEEN @BEDSIDE T/O NIGHT. VSS. SPO2 @96% ON 4L NC, E/U RESPIRATIONS, NO S/S OF DYSPNEA, BREATHING TX GIVEN PER ORDERS, LUNGS SOUND DIM IN UPPER LOBES W/CRACKLES IN BASES. CALL LIGHT IS IN REACH.
--- NOTE | 2019-04-01 10:21 | NUR ---
Spiritual care visit conducted. Patient is minimally responsive but sitting up in bed and alert. Patient's spouse, Rosa and her sister are bedside. Family state that they are very spiritual and are easily encouraged as I quote a few appropriate Bible verses. I listened empathically and provided prayer. Family responded well and voiced appreciation for a spiritual care visit.
[2019-04-01] MEDS ORDERED: Fentanyl1 EACH TOP (10:53)
[2019-04-01] MEDS ORDERED: LORA.5 PO (10:54)
[2019-04-01] MEDS ORDERED: LEVFLO500 PO (10:54)
--- NOTE | 2019-04-01 12:27 | NUR ---
PT DISCHARGE AT 12:20 ON 04/01/19. FAMILY DROVE THE PATIENT HOME IN THEIR PERSONAL VEHICLE. IV DC'D. PATIENTS ATTENDS CHANGED PRIOR TO HIS DISCHARGE.
== END 2019-04-01 12:21 | disposition hospice, home (50) | DRG 178 ==
LOC: ER 18:58 → MEDS 23:45 → ENPENDDIS 04-01 10:40 → MEDS 04-01 12:21
PROVIDERS: Emergency Medicine; Hospitalist; Nurse Practitioner Acute Care; ADMIT Internal Medicine
DX: J69.0 Pneumonitis due to inhalation of food and vomit (principal); N17.9 Acute kidney failure, unspecified; L89.152 Pressure ulcer of sacral region, stage 2; Z79.4 Long term (current) use of insulin; I10 Essential (primary) hypertension; Z86.73 Personal history of transient ischemic attack (TIA), and cerebral infarction without residual deficits; Z51.5 Encounter for palliative care; I48.2 Chronic atrial fibrillation; J44.9 Chronic obstructive pulmonary disease, unspecified; Z66 Do not resuscitate; Z87.81 Personal history of (healed) traumatic fracture; K59.00 Constipation, unspecified; E78.5 Hyperlipidemia, unspecified; E86.0 Dehydration; E11.9 Type 2 diabetes mellitus without complications; Z74.01 Bed confinement status
CPT/HCPCS: 36415; 70450; 71046; 74176; 80048; 80053; 81001; 82947; 83605; 83690; 83735; 85025; 85610; 87040; 87070; 87086; 87205; 93971; 94640; 94760; 96361; 96365; 96375; 99285-25; J0456; J0696; J1956; J2185; J2405; J3010; J3370; J7030; J7050